=== PATIENT | female | born 1975 | race African-American/Black ===

== ENCOUNTER 2023-01-15 11:40 | Outpatient (CLI) | payer OTHER, SELFPAY ==
[2023-01-15 12:21] LABS: Hemoglobin 10.1 g/dL (12.0-15.0); Mean Corpuscular HGB Conc 30.6 g/dl (32-36); Mean Corpuscular Volume 75.2 fl (80-100); Mean Platelet Volume 10.3 fl (7.4-10.4); Platelet Count Result 365 k/mm3 (150-375); Red Blood Count 4.39 M/mm3 (4.2-5.4); Red Cell Distribution Width 17.3 % (11.5-14.5); White Blood Count 7.5 K/mm3 (4.5-10.0)
== END 2023-01-15 11:41 | disposition home or self-care (01) ==
LOC: ANHLAB 11:43
PROVIDERS: Visit Provider Obstetrics & Gynecology
DX: Z01.818 Encounter for other preprocedural examination (principal)
CPT/HCPCS: 36415; 85027

== ENCOUNTER 2023-02-05 00:45 | Day surgery (SDC) | payer OTHER, SELFPAY ==
[2023-02-03 13:00] VITALS: BMI 29.7
--- NOTE | 2023-02-03 13:10 | SUR.PREOP ---
Report to the Outpatient Waiting Room, entrance under the green pavilion located off [facility], at time 0600 on date 02/05/23. Planned Procedure Time: 0730. Time changes happen often and if your time is changed the preop area will call you the afternoon before. - You and your visitor will be asked to self-screen and do not enter if you have any COVID symptoms. - A mask is optional within the hospital at this time. Patients may have clear liquids (water, carbonated beverages, clear teas, apple juice) until 3 hours prior to surgery with a maximum of 20 ounces. - No food from midnight until time of surgery - Infants may have breast milk until 4 hours before surgery, formula 6 hours prior to surgery. - Children will be allowed to drink immediately following surgery. If applicable, please bring a bottle or sippy cup to assist with drinking. Juice, water, soda, and popsicles are readily available. For infants on formula, please bring formula the day of surgery. Pacifiers are allowed. Take the following medications with a SIP of water the morning of surgery: ___N/A DO NOT STOP ANY OF YOUR OTHER PRESCRIPTION MEDICATIONS PRIOR TO SURGERY ?EXCEPT THE FOLLOWING Medications to discontinue per physician ____SPIRONOLACTONE, FERROUS SULFATE DAY OF SURGERY Date to take last dose Please no make-up, nail trinidadian, hairspray, perfume, deodorant, or body powder the day of surgery. No jewelry (including any body piercings) or valuables the day of surgery, leave them at home. Please take a shower or bath the night before, or the morning of, surgery with an antibacterial soap. Wear comfortable, loose fitting clothing. Children are encouraged to wear pajamas. - Jewelry must be removed prior to entering the operating room. Rings and piercings that are not removed may be cut off. - The hospital will not accept responsibility for valuables. - Please leave all valuables, including medications, at home the day of surgery. If you are going home after surgery, a licensed bulk truck driver must drive you home. - NO public transportation without another adult if you receive anesthesia. - We recommend that an adult stay with you for 24 hours following discharge. - We also recommend that you do not drive, make important decision, drink alcoholic beverages, or take any drugs that were not prescribed by your health care provider for at least 24 hours after your discharge time. For Pediatric surgeries, we recommend two adults accompany the child home. Follow any additional instructions given to you from your surgeon. If you or anyone in your household have experienced Covid symptoms in the past week, please notify your surgeon or the nurse liaison at the phone number below for possible testing. Telephone instructions given to _PATIENT_and asked if any additional questions and then verbalized understanding. Patient advised to call surgeon office or pre surgery nurse liaison [phone] if any additional questions.
[2023-02-05] VITALS (11 sets, daily range): BP systolic 111–150; BP diastolic 68–100; PULSE 64–99; RESP 12–20; TEMP 36.3–37.5; O2SAT 96–100
[2023-02-05] MEDS: LACTATED RINGERS 1,000 ML 30 ML IV CONT ×2 (06:29→10:22)
[2023-02-05] MEDS: KETOROLAC 15 MG/ML VIAL (*BKC) IV PUSH (06:30)
[2023-02-05] MEDS: ACETAMINOPHEN 500 MG TABLET 1000 MG PO (06:30)
--- NOTE | 2023-02-05 06:34 | P.PNAN_ITS ---
Anes - Initial Pre Proc Eval Procedure: Operation Date: 02/05/23 07:30 Proposed Procedures p Robotic Laparoscopic Total Hysterectomy with Bilateral Salpingectomy - Everett Arriaga MD Date/Time: 02/05/23 06:34 Surgeon: Everett Arriaga MD Pre Op Diagnosis: fibroid uterus , irregular menstruation Patient Data Age: 47 Gender: F Height: 1.68 m Weight: 83.46 kg Allergies Allergy/AdvReac Type Severity Reaction Status Date / Time No Known Allergies Allergy Verified 01/15/23 10:51 Home Medications Medication Instructions Recorded Confirmed Type spironolactone 100 mg tablet 100 mg PO BID 04/27/20 02/03/23 History ferrous sulfate 325 mg (65 mg 325 mg PO BID #60 tabs 01/15/23 02/03/23 Rx iron) tablet Patient hx anesthesia problems: none Family hx anesthesia problems: none Results Review: All pre-operative results and documents have been reviewed as part of the pre- operative evaluation. [facility] Past Medical History Medical History (Updated 02/05/23 @ 06:34 by Berto Leija MD) Overweight Surgical History Surgical History H/O myomectomy Family History Family History Father Family history of diabetes mellitus in first degree relative Mother Family history of lupus erythematosus Social History Social History Smoking status: Smoker, status unknown Second hand tobacco smoke exposure: No Smoking end date: 08/18/03 Additional smoking assessment comments: PT STATES THAT SHE HAS AN OCCASIONAL CIGARETTE WITH A DRINK Alcohol intake: unknown Alcohol use details: OCCASIONAL DRINK Substance use: unknown Current Housing: Decline to Answer Concerned About Future Housing: Decline to Answer Difficulty Paying Gas/Electric Bills: Decline to Answer Difficulty Paying for Meds: Decline to Answer Currently Unemployed: Decline to Answer Difficulty w/ Childcare or Family Care: Decline to Answer Living arrangements: with family Spiritual care concerns: No Anes - Eval Final PreProcedure Day of Procedure 02/05/23 06:34 Patient weight: overweight Heart: regular rate and rhythm Lungs: clear to auscultation Airway: Mallampati scale class II Neurological: alert and oriented Last oral intake: >/= 8 hours ASA classification: II Emergent: no Anesthetic plan: proceed Anesthesia type and monitoring: general ETT and standard monitoring Results Review: All pre-operative results and documents have been reviewed as part of the pre- operative evaluation. Informed Consent: The patient's anesthetic plan and its attendant risks and benefits were discussed with the patient/family/POA. Questions were solicited and answers provided to the satisfaction of the patient/family/POA.
--- NOTE | 2023-02-05 06:44 | PM.IMHP ---
H&P: HPI History of Present Illness Date/Time: 02/05/23 06:45 Chief Complaint: Prolonged heavy periods Narrative: She is a 47 y/o G0 with history of symptomatic fibroid uterus with menorrhagia and anemia. She has a long history of fibroids. She has had a prior myomectomy in 2013. Her menorrhagia resolved until over a year ago when periods started lasting 9 days and moderate to heavy flow. Had episodes of intermenstrual bleeding. Last hemoglobin 10. She was started on oral iron therapy. She had ultrasound which showed fibroids returned. Recent endometrial biopsy normal. She has been informed of the treatment options for symptomatic fibroid uterus and wants definitive therapy with hysterectomy. She has been made aware of benefits of salpingectomy and request this at the same time. Is aware will not be able to conceive and carry with hysterectomy. She does not have menopausal symptoms and wants ovaries to remain unless necessary to remove them. Review of Systems Review of Systems: All systems reviewed & are unremarkable except as noted in HPI and below Cardiovascular: Cardiovascular: Reports no additional cardiovascular complaints, Denies chest pain and Denies dyspnea Respiratory: Respiratory: Reports no additional respiratory complaints and Denies dyspnea Gastrointestinal: Gastrointestinal: Reports abdominal pain, Denies change in bowel habits, Denies diarrhea, Denies nausea and Denies vomiting Genitourinary: Genitourinary: Reports pelvic pain Musculoskeletal: Musculoskeletal: Reports back pain Integumentary/Breasts: Skin/Breast: Reports system reviewed and no additional complaints, except as docu Neurologic: Reports system reviewed and no additional complaints, except as documented PMFSH Past Medical History Medical History Overweight Surgical History Surgical History H/O myomectomy Family History Family History Father Family history of diabetes mellitus in first degree relative Mother Family history of lupus erythematosus Social History Social History Smoking status: Smoker, status unknown Second hand tobacco smoke exposure: No Smoking end date: 08/18/03 Additional smoking assessment comments: PT STATES THAT SHE HAS AN OCCASIONAL CIGARETTE WITH A DRINK Alcohol intake: unknown Alcohol use details: OCCASIONAL DRINK Substance use: unknown Current Housing: Decline to Answer Concerned About Future Housing: Decline to Answer Difficulty Paying Gas/Electric Bills: Decline to Answer Difficulty Paying for Meds: Decline to Answer Currently Unemployed: Decline to Answer Difficulty w/ Childcare or Family Care: Decline to Answer Living arrangements: with family Spiritual care concerns: No Meds Home Medications and Allergies Home Medications Medication Instructions Recorded Confirmed Type spironolactone 100 mg tablet 100 mg PO BID 04/27/20 02/05/23 History ferrous sulfate 325 mg (65 mg 325 mg PO BID #60 tabs 01/15/23 02/05/23 Rx iron) tablet Allergies Allergy/AdvReac Type Severity Reaction Status Date / Time No Known Allergies Allergy Verified 01/15/23 10:51 Exam Const: Orientation/consciousness: oriented to person and oriented to place HENMT: Head: normal to inspection Eyes: General: appearance normal, both eyes and all related structures Resp: Effort & Inspection: normal respiratory effort Auscultation: clear to auscultation bilaterally Cardio: Rate: regular rate Rhythm: regular rhythm GI: Inspection: normal to inspection GI Palp: No Rebound tenderness present : External Female Exam: normal external appearance Speculum Exam - Vagina: normal appearance of the vagina Speculum Exam - Cervix: normal appearance of the cervix Bima
--- NOTE | 2023-02-05 06:55 | WPDHPUPDATE1 ---
History and Physical Update Update Date/Time: 02/05/23 06:55 History and Physical has been reviewed, including an updated exam of the patient. There are NO changes in the patient's condition. Risks, benefits, and alternatives have been discussed and questions answered. Patient agrees to proceed with procedure.
[2023-02-05 07:04] LABS: Anion Gap 6 mmol/L (8-16); Blood Urea Nitrogen 15 mg/dL (7-17); Calcium 8.6 mg/dL (8.4-10.2); Carbon Dioxide 26 mmol/L (22-30); Chloride 102 mmol/L (98-107); Estimated CRCL calculation 74 ml/min; Estimated Glomerular Filt Rate > 60; Glucose 116 mg/dL (65-110); Potassium 4.5 mmol/L (3.4-5.0); Sodium 134 mmol/L (137-145)
[2023-02-05] MEDS: ceFAZolin 2 GM/D5W 50 ML 2 GM/50 ML BAG IVPB (07:26)
--- NOTE | 2023-02-05 07:30 | W.PM.PROC2 ---
Procedure Note - Detailed Date of Procedure 02/06/23 Pre-op Diagnosis fibroid uterus , irregular menstruation Post-op Diagnosis Same Procedure Performed Robotic assisted laparoscopic hysterectomy with bilateral salpingectomy Lysis of adhesions Surgeon Everett Arriaga MD Air Pumper Juan R Quintero Anesthesia General Indications Symptomatic recurrent fibroid uterus with menorrhagia and anemia. Findings Large fibroid uterus with multiple subserosal and intramural fibroids. Description of Procedure After informed consent was obtained she was taken to the operating room and general endotracheal anesthesia was administered. She was placed in low lithotomy position. An exam under anesthesia was performed. Uterus approximately 12-14 week size, no adnexal masses palpated. She was and prepped and draped in sterile fashion. Madrigal catheter placed in bladder. Attention was turned to the vagina speculum was inserted. Single-tooth tenaculum placed on anterior lip of the cervix the uterus sounded to 7cm. The cervix was dilated to a 8 Wong dilator. A size 6 uterine manipulator was inserted and secured. A size 3.0 colp cup was secured in the vagina. Then attention was turned to the abdomen with new sterile gloves. .25% marcaine injected subcutaneously. An incision was made horizontal 2 cm above the umbilicus. The subcutaneous tissue was dissected with S retractors. Anterior and posterior fascia grasped with Ethel clamp and incised. Peritoneum entered. No adhesions palpated. The fascia sutures were secured with 0 vicryl. The robotic hysson port and camera inserted into abdomen and secured to fascial sutures. A Pneumoperitoneum of 15 mm per mercury was obtained. No abdominal adhesions noted there was adhesions of the left ovary to the fallopian tube. She was placed in trendelenberg position until the intestines was displaced out of the pelvis. A small incision was made approximately 6 cm lateral to the port on the left side of the port. A size 8mm robotic port was inserted under laparoscopic visualization into the abdomen on the left side. Attention was turned to right side of the abdomen and marcaine was injected subcutaneously and an incision made and an 8mm robotic port inserted. This was repeated superior and medial and an dam tender assistant port was inserted. Attention was turned to the surgery console. The bladder and lower anterior peritoneum was adhesed to the mid uterus and the adhesions were lysed.The right round ligament was ligated. The anterior leaf of the broad ligament was dissected and the right side of the bladder was dissected from the lower uterine segment and upper cervix. The right fallopian tube was ligated from the broad ligament and the ovarian ligament was ligated with the vessel sealer. The a posterior leaf of the broad ligament was further dissected. The ascending uterine vessels were cauterized, the uterine vessels on the right were skeletonized. The uterine vessels were ligated. Attention was turned to the left round ligament which was ligated and the anterior leaf of the broad ligament was dissected anteriorly. The rest of the vesicouterine peritoneum was dissected off of the uterus. Once the bladder was dissected below the colp cup then the adhesions of the left ovary to the uterus were lysed and the adhesions of the ovary to uterus were lysed. The left ovarian ligament with ligated. The posterior leaf of the broad ligament was further dissected. The ascending uterine vessels were ligated. The uterine arteries were skeletonized. The uterine arteries were ligated. The cardinal ligaments were ligated. This was done on both sides. An incision was made anterior colpotomy incision was made and was carried around to posterior cul de sac. The uterus was then bivalved. The rest of the colpotomy was performed removing the cervix from the vagina. Two larger intramural posterior fibroids were shelled out to allow the uterus and cervix to be removed through t
[2023-02-05] MEDS: BUPIVACAINE/EPINEPHRINE 0.5% 50 ML VIAL INFILTRATE (08:09)
[2023-02-05] MEDS: SCOPOLAMINE 1.5 MG PATCH TRANSDERM (10:59)
--- NOTE | 2023-02-05 11:25 | PM.OP ---
Procedure Note - Brief Procedure Note - Brief Date of procedure: 02/05/23 fibroid uterus , irregular menstruation Post-op diagnosis: Same Procedure performed: Robotic assisted laparoscopic hysterectomy with bilateral salpingectomy Lysis of adhesions Surgeon: Everett Arriaga MD In House Counsel: Juan R Stoddard Anesthesia: GETA Findings: Enlarged uterus 408 gms, multiple subserosal and intramural fibroids. Adhesion of bladder to anterior uterus. Adhesion of left ovary to fallopian tube and uterus. Estimated blood loss (mL): 150 Urine output (mL): 200 Drains: No Packing: No Pathology: Yes (uterus and cervix and right and left fallopian tubes,and fibroids) Complications: No immediate complications Condition: Stable Disposition: PACU
[2023-02-05] MEDS: BISACODYL 5 MG TABLET EC PO (15:40)
[2023-02-05] MEDS: HYDROcodone/acetaminophen (*CRX) 5-325 MG TABLET 1 TAB PO (15:40)
[2023-02-05] MEDS: KETOROLAC 30 MG/ML VIAL (*BKC) IV PUSH ×2 (16:05→22:12)
[2023-02-05] MEDS: HYDROcodone/acetaminophen (*CRX) 10-325 MG TABLET 1 TAB PO (18:35)
[2023-02-06 05:00] VITALS: BP 128/87; PULSE 95; RESP 16; TEMP 37; O2SAT 100
[2023-02-06] MEDS: SIMETHICONE 80 MG TAB.CHEW PO ×3 (05:13→11:48)
[2023-02-06] MEDS: KETOROLAC 30 MG/ML VIAL (*BKC) IV PUSH ×2 (05:13→11:48)
--- NOTE | 2023-02-06 07:54 | WPDANESPN ---
Anes - Prog Note Post-Op Date/Time: 02/06/23 07:54 Cardiovascular status: normal Respiratory status: normal Airway patency: baseline Mental status: baseline Post-Op hydration status: normal Vital Signs: Last Vital Signs Temp 37.0 C 02/06/23 05:00 Pulse 95 02/06/23 05:00 Resp 16 02/06/23 05:00 BP 128/87 02/06/23 05:00 Pulse Ox 100 02/06/23 05:00 O2 Del Method Room Air 02/06/23 05:00 O2 Flow Rate 8 02/05/23 10:35 Pain Score (VAS): 10/25 I/O: Intake & Output 02/05/23 02/05/23 02/06/23 15:59 23:59 07:59 Intake Total 650 800 Output Total 1520 100 100 Balance -870 -100 700 Laboratory Tests 02/05/23 06:18 02/05/23 06:18 Blood Type O Positive Antibody Screen Positive Antibody Identification Anti-E Antigen Identification Not Reportable FELISHA, IgG Interpret Not Performed FELISHA, Poly Interpret Negative FELISHA, Complement Interp Not Performed Crossmatch See Detail Enhanced Crossmatch See Detail Post-procedural complaints: none Patient Feedback: Patient satisfied with anesthetic care.
[2023-02-06 08:05] VITALS: PULSE 105; RESP 18; TEMP 36.9; O2SAT 99
[2023-02-06] MEDS: ACETAMINOPHEN 325 MG TABLET 650 MG PO (08:30)
[2023-02-06 08:45] VITALS: BP 129/81
--- NOTE | 2023-02-06 08:45 | PC.NURSE ---
Pepsi and prune juice given to pt per MD order. Instructed pt to drink to encourage bowel activity. Encouraged pt to walk in the halls. Pt states understanding.
[2023-02-06] MEDS: polyethylene glycoL 3350 17 GM POWD.PACK PO (13:50)
== END 2023-02-06 17:00 | disposition home or self-care (01) ==
LOC: ANHSURGERY 05:51 → ANHOB2 13:59
PROVIDERS: Anesthesiology; Visit Provider Obstetrics & Gynecology
PROC: (CPT 58573; principal; 2023-02-05 07:30)
DX: N92.0 Excessive and frequent menstruation with regular cycle (principal); D64.9 Anemia, unspecified; D25.0 Submucous leiomyoma of uterus; D25.1 Intramural leiomyoma of uterus; D25.2 Subserosal leiomyoma of uterus; Z72.0 Tobacco use
CPT/HCPCS: 58573; S2900; 36415; 80048; 85027; 86850; 86880; 86900; 86901; 86902; 86922; 88307; 99199; A9270; J0330; J0360; J0690; J1100; J1170; J1885; J2250; J2405; J2704; J2710; J3010; J7030; J7120

== ENCOUNTER 2023-02-20 05:36 | Inpatient (IN) | payer OTHER, SELFPAY ==
[2023-02-20] VITALS (9 sets, daily range): BP systolic 95–131; BP diastolic 56–86; PULSE 100–120; RESP 15–24; TEMP 36.2–36.8; O2SAT 94–100; BMI 33.5
--- NOTE | ~2023-02-20 | CT_ITS ---
CT of the Abdomen and Pelvis: Indication: Status post hysterectomy, abdominal pain and bleeding Technique: 2.5 mm axial scans were obtained through the abdomen and pelvis following intravenous adm inistration of 100 cc of Omnipaque 350. Dose reduction technique was used on this scan by utilizing a utomated exposure control and iterative reconstruction technique. The dose-length product (DLP) was 5 60.50 mGy-cm. Findings: Scans through the lung bases are unremarkable. The liver, spleen, pancreas, gallbladder, adrenals and kidneys are within normal limits. No evidence of aortic aneurysm. No lymphadenopathy. Prominent stool noted at the rectum. No bowel obstruction. Images through the pelvis were performed. Patient is status post hysterectomy. There is a peripherall y enhancing fluid and air collection in the pelvis extending to the lower abdomen measuring approxima tely 10.5 x 10.2 x 9.4 cm in size, compatible with large abscess. Urinary bladder unremarkable. There is infiltration of surrounding pelvic fat planes, likely due to inflammatory change and/or postopera tive change. Impression: 10.5 x 10.2 x 9.4 cm central pelvic abscess, as detailed above. Reviewed, dictated and finalized at location M. Impression: 10.5 x 10.2 x 9.4 cm central pelvic abscess, as detailed above.
--- NOTE | ~2023-02-20 | XR_ITS ---
EXAMINATION: XR chest PICC line DATE: 02/23/2023 09:21 INDICATION: Central line placement. TECHNIQUE: A single frontal view of the chest was obtained. COMPARISON: None. FINDINGS: The chest demonstrates clear lungs without pneumonia, pleural effusion, or pneumothorax. Th e heart size is normal. A right upper extremity peripherally inserted central venous catheter (PICC) is seen with tip in the superior vena cava. IMPRESSION: 1. PICC tip in the superior vena cava. Reviewed, dictated and finalized at location A.
--- NOTE | ~2023-02-20 | CT_ITS ---
EXAMINATION: CT abdomen pelvis wo con DATE: 02/21/2023 10:19 INDICATION: Pelvic abscess. TECHNIQUE: Computed tomography (CT) of the abdomen and pelvis was performed without intravenous contr ast. Automated exposure control and iterative reconstruction technique were employed. The dose-length product was 504.43 mGy-cm. COMPARISON: CT abdomen and pelvis 02/20/2023 FINDINGS: The visualized portions of the lung bases demonstrate mild atelectasis. No pleural effusion . The heart size is normal. No pericardial effusion. The liver, gallbladder, spleen, pancreas, adrena l glands, and left kidney are normal. There is an 11 mm hyperdense cyst in right kidney. There is a 7 .7 x 6.7 x 5.6 cm pelvic abscess with percutaneous drain in expected position. There are no dilated l oops of bowel. The appendix is not well visualized. There is a supraumbilical ventral hernia containi ng fat. There are no pathologically enlarged lymph nodes. There is fat stranding in the inferior diamond toneum, consistent with inflammation. There is subcutaneous fat stranding in the body wall, which may be scarring from abdominoplasty if the patient has that surgical history. There is mild lumbar spond ylosis. IMPRESSION: 1. 7.7 x 6.7 x 5.6 cm pelvic abscess with percutaneous drain in expected position, improved from 10.5 x 10.2 x 9.5 cm on 02/20/2023. 2. Supraumbilical ventral hernia containing fat. Reviewed, dictated and finalized at location A. IMPRESSION: 1. 7.7 x 6.7 x 5.6 cm pelvic abscess with percutaneous drain in expected positi on, improved from 10.5 x 10.2 x 9.5 cm on 02/20/2023. 2. Supraumbilical ventral hernia containing fat.
--- NOTE | ~2023-02-20 | CT_ITS ---
EXAMINATION: CT guide absc cath placement DATE: 02/20/2023 15:27 INDICATION: Pelvic abscess. TECHNIQUE: The procedure including the risks, benefits, and alternatives was discussed with the patie nt. Risks discussed included bleeding and infection. The patient understood the risks and benefits an d agreed to proceed. The patient was confirmed to be receiving appropriate antibiotic coverage. The skin overlying the abdomen was prepped and draped in usual sterile fashion. Anesthetic was administe red with 1% lidocaine subcutaneously. An 18 gauge trochar needle was inserted into the pelvic abscess with CT guidance. The needle was exchanged over a wire for 6 Guinean, 8 Guinean, 10 Guinean, and 12 [facility] dilators and then for a 12 Guinean Guinean pigtail catheter. The catheter was stitched to the skin, and a sterile dressing was applied. The mA was adjusted according to patient size. Iterative reconst ruction technique was employed. The dose-length product was 164.99 mGy-cm. There were no immediate co mplications. FINDINGS: CT images demonstrate the catheter within the pelvic abscess. 5 mL fluid was aspirated for testing. IMPRESSION: 1. Successful CT-guided pelvic abscess drainage. 2. 5 mL opaque, red, foul-smelling fluid was sent for aerobic and anaerobic cultures. Reviewed, dictated and finalized at location A. IMPRESSION: 1. Successful CT-guided pelvic abscess drainage. 2. 5 mL opaque, red, foul-smelling fluid was sent for aerobic and anaerobic cul tures.
--- NOTE | ~2023-02-20 | CT_ITS ---
Non-contrast CT scan of the Abdomen and Pelvis Clinical indication: Abdominal discomfort Technique: 2.5 mm axial scans were obtained through the abdomen and pelvis without intravenous or or al contrast. Dose reduction technique was used on this scan by utilizing automated exposure control a nd iterative reconstruction technique. The dose-length product (DLP) was 614.34 mGy-cm. COMPARISON: 02/21/2023 Findings: Images through the lung bases reveal no abnormalities. There is no evidence of renal or ureteral calculi. The kidneys and the ureters are nondilated. The liver, spleen, pancreas, gallbladder, and adrenals appear normal. There is no aortic aneurysm. There is no evidence of bowel obstruction. Fat-containing ventral hernia is unchanged. Images through the pelvis were performed. Pelvic abscess with percutaneous drainage catheter is again present, essentially unchanged from prior exam. Urinary bladder unremarkable. Impression: Stable pelvic abscess with percutaneous drainage catheter. Correlate with drainage output. Stable ventral fat-containing hernia. Reviewed, dictated and finalized at [facility]. Impression: Stable pelvic abscess with percutaneous drainage catheter. Correlate with drain age output. Stable ventral fat-containing hernia.
[2023-02-20] MEDS: HYDROmorphone HCL INJ (*CRX) 1 MG/ML SYR 0.5 MG IV PUSH ×2 (06:35→07:28)
[2023-02-20] MEDS: SODIUM CHLORIDE 0.9% IV 2,000 ML 999 ML IV CONT (06:36)
--- NOTE | 2023-02-20 06:37 | ED.GENADULT ---
HPI - General Adult General Chief complaint: Vaginal Bleeding <José Miguel Baker MD - Last Filed: 02/23/23 18:20> Stated complaint: post op bleeding <José Miguel Baker MD - Last Filed: 02/23/23 18:20> Time Seen by Provider: 02/20/23 06:12 <José Miguel Baker MD - Last Filed: 02/23/23 18:20> History of Present Illness HPI narrative: This is a 47-year-old female presenting to the ED with vaginal bleeding after she had a total Robotic assisted laparoscopic hysterectomy with bilateral salpingectomy performed by Dr. Arriaga on 02/05/2023. Patient has had increasing abdominal pain since the surgery but has gotten particularly worse over the last 4-5 days. He has sharp stabbing pain in her lower abdomen. Today she woke up with significant amount of blood on her bed sheets. She then put on a sanitary pad and came to the hospital for evaluation. Patient denies fever chills chest pain nausea vomiting or diarrhea. <José Miguel Baker MD - Last Filed: 02/23/23 18:20> Related Data Home medications: Home Medications Medication Instructions Recorded Confirmed spironolactone 100 mg tablet 100 mg PO BID 04/27/20 02/20/23 <José Miguel Baker MD - Last Filed: 02/23/23 18:20> Allergies/adverse reactions: Allergies Allergy/AdvReac Type Severity Reaction Status Date / Time No Known Allergies Allergy Verified 01/15/23 10:51 <José Miguel Baker MD - Last Filed: 02/23/23 18:20> [facility] Past Medical History Medical History: Medical History (Updated 02/23/23 @ 12:18 by Rosana Mora PA-C) Anemia Loida Fibroid uterus Irregular periods Overweight <José Miguel Baker MD - Last Filed: 02/23/23 18:20> Surgical History Surgical History: Surgical History H/O hysterectomy with oophorectomy H/O myomectomy <José Miguel Baker MD - Last Filed: 02/23/23 18:20> Family History Family History: Family History Father Family history of diabetes mellitus in first degree relative Mother Family history of lupus erythematosus <José Miguel Baker MD - Last Filed: 02/23/23 18:20> Social History Social History: Social History (Updated 02/22/23 @ 01:07 by Nikki Kendrick NP) Social History: The patient works for the [employer]. She is single not . She lives alone. She has never had any children. She socially drinks. She does not have a durable power bankruptcy attorney for healthcare. Code status full code Smoking packs per day: 0.05 Smoking cigarettes per day: 1.0 Smoking status: Current every day smoker Tobacco type: cigarettes Second hand tobacco smoke exposure: No Smoking end date: 08/18/03 Additional smoking assessment comments: PT STATES THAT SHE HAS AN OCCASIONAL CIGARETTE WITH A DRINK Alcohol intake: current Drinks per week: 2 Alcohol use details: OCCASIONAL DRINK Substance use: unknown Lack of Transportation: No Lack of Food: Never True Current Housing: I Have Housing Concerned About Future Housing: No Difficulty Paying Gas/Electric Bills: No Difficulty Paying for Meds: No Currently Unemployed: No Education: High School Diploma/GED Difficulty w/ Childcare or Family Care: No Living arrangements: with family Spiritual care concerns: No <José Miguel Baker MD - Last Filed: 02/23/23 18:20> Exam Narrative: APPEARANCE: Patient appears uncomfortable Head: atraumatic. EYES: EOMI, NOSE: Atraumatic NECK: Trachea midline RESPIRATORY: No increased rate of breathing clear to auscultation CARDIOVASCULAR: RRR, ABDOMINAL: abdomen is tender to palpation in the lower quadrants. Several well-healed surgical scars without erythema. Red blood at the vaginal introitus. MUSCULOSKELETAl: No obvious deformities NEURO: Alert. Moving 4/4 extremities SKIN:: Warm, dry. Normal color PSYCHIATRIC: Normal affect <José Miguel Baker MD - Last Fi
[2023-02-20 06:38] LABS: Glucose Point of Care 131 mg/dl (65-105)
[2023-02-20 07:15] LABS: Lactic Acid Reflex 1.6 mmol/L (0.7-2.0)
[2023-02-20 07:16] LABS: Alanine Aminotransferase 98 U/L (6-35); Albumin Level 3.6 g/dL (3.5-5.1); Alkaline Phosphatase 121 U/L (38-126); Anion Gap 11 mmol/L (8-16); Aspartate Amino Transferase 67 U/L (14-36); Bilirubin,Total 0.7 mg/dL (0.2-1.3); Blood Urea Nitrogen 14 mg/dL (7-17); Calcium 8.5 mg/dL (8.4-10.2); Carbon Dioxide 21 mmol/L (22-30); Chloride 94 mmol/L (98-107); Estimated CRCL calculation 74 ml/min; Estimated Glomerular Filt Rate > 60; Glucose 122 mg/dL (65-110); Magnesium 2.1 mg/dL (1.6-2.3); Sodium 126 mmol/L (137-145)
[2023-02-20 07:28] LABS: INR 1.1; Prothrombin Time 14.8 Seconds (11.1-14.7)
[2023-02-20 07:39] LABS: Basophils Percent Auto 0.2 % (0.2-1.2); Eosinophils Absolute Auto 0.1 K/mm3 (0-0.3); Eosinophils Percent Auto 0.6 % (0-4.4); Hematocrit 27.4 % (37.0-47.0); Hemoglobin 8.3 g/dL (12.0-15.0); Immature Granulocyte Absolute 0.08 K/mm3 (0.00-0.031); Immature Granulocyte Percent A 0.6 % (0-0.5); Lymphocytes Absolute Auto 1.31 K/mm3 (0.9-3.2); Lymphocytes Percent Auto 10.6 % (18.3-44.2); Mean Corpuscular HGB Conc 30.3 g/dl (32-36); Mean Corpuscular Hemoglobin 25.4 pg (26-34); Mean Corpuscular Volume 83.8 fl (80-100); Monocytes Absolute Auto 1.1 K/mm3 (0.1-0.6); Monocytes Percent Auto 8.8 % (2.6-8.5); Neutrophils Absolute Auto 9.7 K/mm3 (1.3-6.7); Neutrophils Percent Auto 79.2 % (45.5-73.1); Platelet Count Result 541 k/mm3 (150-375); Red Blood Count 3.27 M/mm3 (4.2-5.4); Red Cell Distribution Width 23.8 % (11.5-14.5); White Blood Count 12.3 K/mm3 (4.5-10.0)
--- NOTE | 2023-02-20 07:44 | PC.NURSE ---
Dr. Arriaga in dept to see patient.
[2023-02-20 08:02] LABS: Anisocytosis 1+ (NORMAL); Hypochromasia 1+ (NORMAL); Microcytosis 1+ (NORMAL); Platelet Estimate Increased (Adequate); Schistocytes None Seen (NORMAL)
[2023-02-20] MEDS: PIPERACILLIN/TAZOBACTAM SOD 4.5 GM in SODIUM CHLORIDE 0.9% IV 100 ML 200 ML IVPB (09:00)
[2023-02-20] MEDS: SODIUM CHLORIDE 0.9% IV 1,000 ML 125 ML IV CONT ×2 (09:00→16:46)
--- NOTE | 2023-02-20 09:48 | PC.NURSE ---
This patient, Gladys Judge, was admitted to Medical Room 340-01. Patient/family oriented to hospital policies and general routines including ID bracelet, bed and alarms, visiting hours, pain management, procedures, bathroom and other care routines, personal items, smoking policy, room service/diet, and visiting hours. Information on how to activate the Rapid Response Team has been discussed. Patient/Family are encouraged to report perceived risks to care and to ask questions if they do not understand what they are told or what they should do.
--- NOTE | 2023-02-20 13:14 | PM.IMHP ---
H&P: HPI History of Present Illness Date/Time: 02/20/23 13:14 Chief Complaint: vaginal bleeding Narrative: She is status post uncomplicated lap hyst on 02/05 and presented to ED in the am due to acute vaginal bleeding that started approximately 4am. She had not had any bleeding prior to this. She had been having some increase pelvic pressure for 3-4 days. She denies fever or chills. No nausea or vomiting. CT in ED showed 10.5 x 10.2 x 9.4 cm central pelvic abscess. Review of Systems Review of Systems: All systems reviewed & are unremarkable except as noted in HPI and below Constitutional: Constitutional: Reports as per HPI and Denies chills Cardiovascular: Cardiovascular: Denies chest pain Respiratory: Respiratory: Reports no additional respiratory complaints Gastrointestinal: Gastrointestinal: Reports abdominal pain and Reports constipation (occasional) Genitourinary: Genitourinary: Reports as per HPI Musculoskeletal: Musculoskeletal: Reports no additional musculoskeletal complaints Neurologic: Reports system reviewed and no additional complaints, except as documented Psychiatric: Psychiatric: Reports no additional psychiatric complaints [facility] Past Medical History Medical History Overweight Surgical History Surgical History H/O hysterectomy with oophorectomy H/O myomectomy Family History Family History Father Family history of diabetes mellitus in first degree relative Mother Family history of lupus erythematosus Social History Social History Smoking packs per day: 0.05 Smoking cigarettes per day: 1.0 Smoking status: Current every day smoker Tobacco type: cigarettes Second hand tobacco smoke exposure: No Smoking end date: 08/18/03 Additional smoking assessment comments: PT STATES THAT SHE HAS AN OCCASIONAL CIGARETTE WITH A DRINK Alcohol intake: current Drinks per week: 2 Alcohol use details: OCCASIONAL DRINK Substance use: unknown Lack of Transportation: No Lack of Food: Never True Current Housing: I Have Housing Concerned About Future Housing: No Difficulty Paying Gas/Electric Bills: No Difficulty Paying for Meds: No Currently Unemployed: No Education: High School Diploma/GED Difficulty w/ Childcare or Family Care: No Living arrangements: with family Spiritual care concerns: No Meds Home Medications and Allergies Home Medications Medication Instructions Recorded Confirmed Type spironolactone 100 mg tablet 100 mg PO BID 04/27/20 02/20/23 History ferrous sulfate 325 mg (65 mg 325 mg PO BID #60 tabs 01/15/23 02/20/23 Rx iron) tablet hydrocodone 5 mg-acetaminophen 325 1 tablet PO Q4H PRN pain #20 tabs 02/06/23 02/20/23 Rx mg tablet ketorolac 10 mg tablet 10 mg PO Q6H PRN Pain Rated 4-6 02/06/23 02/20/23 Rx #15 tabs Allergies Allergy/AdvReac Type Severity Reaction Status Date / Time No Known Allergies Allergy Verified 01/15/23 10:51 Vital Signs Vital Signs - 24 hr 02/20/23 05:39 02/20/23 06:18 02/20/23 07:08 Temperature 97.1 F L 98 F Pulse Rate 118 H 120 H 109 H Respiratory Rate 20 19 18 Blood Pressure 122/79 131/86 123/79 Pulse Oximetry 99 99 99 Oxygen Delivery Room Air 02/20/23 07:58 02/20/23 08:53 02/20/23 09:48 Temperature 98.2 F Pulse Rate 109 H 109 H Respiratory Rate 24 H 20 Blood Pressure 95/56 L Pulse Oximetry 100 100 100 Oxygen Delivery Room Air 02/20/23 12:39 Temperature 98.0 F Pulse Rate 106 H Respiratory Rate 15 Blood Pressure 117/76 Pulse Oximetry 94 Oxygen Delivery Exam Const: General: cooperative Orientation/consciousness: oriented to person, oriented to place and oriented to time Eyes: General: appearance normal, both eyes and all related structure
[2023-02-20] MEDS: PIPERACILLN/TAZ 3.375GM/NS50ML 3.375 GM/50 ML BAG IVPB ×2 (16:46→23:33)
[2023-02-20] MEDS: HYDROcodone/acetaminophen (*CRX) 5-325 MG TABLET 1 TAB PO ×2 (18:05→22:00)
[2023-02-20] MEDS: HYDROcodone/acetaminophen (*CRX) 10-325 MG TABLET 1 TAB PO (23:36)
[2023-02-21] MEDS: PIPERACILLN/TAZ 3.375GM/NS50ML 3.375 GM/50 ML BAG IVPB ×3 (05:56→17:45)
[2023-02-21 06:00] VITALS: BP 117/72; PULSE 86; RESP 18; TEMP 36; O2SAT 100
[2023-02-21 06:19] LABS: Hematocrit 26.7 % (37.0-47.0); Hemoglobin 7.8 g/dL (12.0-15.0); Mean Corpuscular HGB Conc 29.2 g/dl (32-36); Mean Corpuscular Hemoglobin 24.6 pg (26-34); Mean Corpuscular Volume 84.2 fl (80-100); Platelet Count Result 545 k/mm3 (150-375); Red Blood Count 3.17 M/mm3 (4.2-5.4); Red Cell Distribution Width 23.7 % (11.5-14.5); White Blood Count 10.3 K/mm3 (4.5-10.0)
[2023-02-21] MEDS: HYDROcodone/acetaminophen (*CRX) 5-325 MG TABLET 1 TAB PO ×3 (06:47→20:42)
[2023-02-21 09:33] VITALS: O2SAT 99
--- NOTE | 2023-02-21 09:59 | PM.GYNPNOP ---
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 WBC decreasing. CT today to check for decrease size and drain placement, there is a small isolated tender area lower abdomen. Continue IV antibiotics. (2) Anemia: Code(s): D64.9 - Anemia, unspecified Status: Acute Assessment and Plan: Severe anemia, H/H slight decrease from yesterday. It does not appear active bleeding since less drain output and minimal vaginal bleeding. I recommended a blood transfusion due to the anemia and other conditions, sepsis. She is apprehensive about blood transfusion. I explained the benefits and risk. She declined the blood transfusion. Discussed with her will help her fight infection. She continues to decline. She has a history of chronic anemia. No acute hypovolemic symptoms. She wants to try oral iron. Will start oral iron. Will recheck h/h at noon. If continue to decrease then will get blood transfusion. Discussed risk of severe anemia. (3) Sepsis: Code(s): A41.9 - Sepsis, unspecified organism Status: Acute Assessment and Plan: Blood culture positive. Sensitivity pending. Continue antibiotics. Hospitalist consult. (4) Vaginal odor: Code(s): N89.8 - Other specified noninflammatory disorders of vagina Status: Acute Assessment and Plan: Discussed with her this is probably from the infected hematoma. With her history of bacterial vaginosis will treat empirically with Flagyl. Time Spent With Patient Time: Total time spent is greater than 50% in coordination of care (as documented) at patient's floor/unit and/or counseling patient: Time with patient: 15 - 25 minutes MECHANIC DRIVER- PN:Stanislaw Post-Op Subjective Date/time seen: 02/21/23 09:59 Interval history: She states she feels better. Pain improved. There is an area to the left of midline lower abdomen that is still sore. She is tolerating regular diet. No lightheadedness or dizziness. Denies SOB. Denies chest pain. No leg pain. Vaginal bleeding minimal. She c/o vaginal odor. She has a history of episodes of bacterial vaginosis. Review of Systems Constitutional: Constitutional: Reports no additional constitutional complaints Cardiovascular: Cardiovascular: Denies chest pain Respiratory: Respiratory: Denies dyspnea Genitourinary: Genitourinary: Reports vaginal odor Psychiatric: Psychiatric: Reports no additional psychiatric complaints Exam Const: General: comfortable and no acute distress Eyes: General: appearance normal, both eyes and all related structures Resp: Effort & Inspection: normal respiratory effort GI: Other: drain site clean dry abdomen decrease tenderness and swelling mid abdomen, localized tender area lower abdomen, to left of midline, Neuro: General: oriented to person, oriented to place and oriented to time Extrem: General: normal to inspection and no calf tenderness MECHANIC DRIVER - PN: Obj Data Vital Signs Vital Signs: Vital Signs - 24 hr 02/20/23 12:39 02/20/23 19:56 02/20/23 21:00 Temperature 98.0 F 98.0 F Pulse Rate 106 H 106 H 100 Respiratory Rate 15 15 18 Blood Pressure 117/76 116/62 Pulse Oximetry 94 94 99 Oxygen Delivery Room Air 02/21/23 06:00 02/21/23 09:33 02/21/23 08:00 Temperature 96.8 F L Pulse Rate 86 Respiratory Rate 18 Blood Pressure 117/72 Pulse Oximetry 100 99 Oxygen Delivery Room Air Room Air Intake/Output Intake/Output: Intake & Output 02/18/23 02/19/23 02/20/23 02/21/23 23:59 23:59 23:59 23:59 Intake Total 4110 700 Output Total 1070 50 Balance 3040 650 Meds/Results Medications: Active Medications Generic Name Dose Route Start Last Admin Trade Name Freq PRN Reason Stop Dose Admin Acetaminophen 650 mg 02/20/23 09:58 Acetaminophen 325 Mg Tablet PO Q4H PRN pain Hydrocodone Bitart/Acetaminophen 1 tab 02/20/23 17:48 0
[2023-02-21] MEDS: HYDROcodone/acetaminophen (*CRX) 10-325 MG TABLET 1 TAB PO (12:11)
[2023-02-21 12:14] LABS: Basophils Percent Auto 0.4 % (0.2-1.2); Eosinophils Absolute Auto 0.4 K/mm3 (0-0.3); Eosinophils Percent Auto 3.6 % (0-4.4); Hematocrit 27.4 % (37.0-47.0); Immature Granulocyte Absolute 0.04 K/mm3 (0.00-0.031); Immature Granulocyte Percent A 0.4 % (0-0.5); Lymphocytes Absolute Auto 1.95 K/mm3 (0.9-3.2); Lymphocytes Percent Auto 19.5 % (18.3-44.2); Mean Corpuscular HGB Conc 29.2 g/dl (32-36); Mean Corpuscular Hemoglobin 24.7 pg (26-34); Mean Corpuscular Volume 84.6 fl (80-100); Mean Platelet Volume 9.7 fl (7.4-10.4); Monocytes Absolute Auto 0.6 K/mm3 (0.1-0.6); Monocytes Percent Auto 5.7 % (2.6-8.5); Neutrophils Absolute Auto 7.1 K/mm3 (1.3-6.7); Neutrophils Percent Auto 70.4 % (45.5-73.1); Platelet Count Result 563 k/mm3 (150-375); Red Blood Count 3.24 M/mm3 (4.2-5.4); Red Cell Distribution Width 23.7 % (11.5-14.5)
[2023-02-21] MEDS: FERROUS SULFATE 324 MG TABLET PO ×2 (12:15→16:39)
[2023-02-21] MEDS: polyethylene glycoL 3350 17 GM POWD.PACK PO (12:16)
[2023-02-21 14:00] VITALS: BP 110/73; PULSE 99; RESP 16; TEMP 36.2; O2SAT 99
--- NOTE | 2023-02-21 20:08 | PM.IMCN ---
Assessment and Plan Assessment and plan (1) Postoperative abscess: Code(s): T81.49XA - Infection following a procedure, other surgical site, initial encounter Status: Acute Assessment and Plan: The patient is currently on Flagyl and Zosyn. Blood cultures are pending. Culture of the drainage from her abscess was sent for culture and sensitivity. Preliminary showing gram positive cocci in clusters. Awaiting sensitivity reports. Continue with analgesics as previously ordered. Avoid NSAIDs at this time. (2) Anemia: Code(s): D64.9 - Anemia, unspecified Status: Acute Assessment and Plan: Patient's vital signs are stable at this time. Her abscess drainage bag does have some bloody drainage in it but it looks like it is a very small amount. Continue to monitor H&H. The patient stated she has has chronic anemia. The patient does not want a blood transfusion at this time. I explained that if she became hypotensive and was having symptoms of hypovolemic shock then we would need to give her some Hespan or even some plasma. The patient stated that she was in the shock then she will agree to the blood transfusion. At this time she is stable. The patient stated that she does have a history of iron deficiency anemia needs to be restarted back on her iron. It looks like she is taking her iron at this time. Her H&H is 8.0 in 27.4 this evening. This is up from 7.8 26.7. Please continue to monitor. I explained to the patient that she may not be absorbing the iron and may need an iron infusion. Patient is agreeable to the iron infusion. HPI Data of Consult Consult date: 02/22/23 Requesting Physician: Everett Arriaga MD Primary Care Provider: PHYSICIAN NOT ON STAFF Consult Narrative Narrative: Gladys Judge is a 47 year old female who had a history of fibroid uterus and irregular menstruation. The patient had a robotic assisted laparoscopic hysterectomy with bilateral salpingo-oophorectomy and lysis of adhesions on 02/05/2023. No immediate complications were reported. The patient came back to the emergency room on 02/20/2023 with complaints of vaginal bleed E. She also had increased pain since her surgery. Patient has stabbing pain to her lower abdomen. CT scan on the day of admission [id number] x 10.2 x 9.4 cm central pelvic abscess. Abdominal pelvis CT on 02/21/2023 was read as 7.7 x 6.7 x 5.6 cm pelvic abscess with percutaneous drain in expected position, improved from 10.5 x 10.2 x 9.5 cm on 02/20/2023. 2. Supraumbilical ventral hernia containing fat. On 02/20/2023 her H&H was noted to be 8.327.4. Earlier today was noted to be 7.8 and 26.7. Currently is 8.8 and 27.4. The patient is refusing to be transfused with blood products at this time. The hospitalist group has been consulted. Her current blood pressure is 114/88. Her pulse is 88. The patient appears to be hemodynamically stable. The patient was consulted on the date of service is 02/21/2023. Review of Systems Review of Systems: All systems reviewed & are unremarkable except as noted in HPI and below Constitutional: Constitutional: Reports as per HPI and Reports no additional constitutional complaints Eyes: Eyes: Reports as per HPI and Reports no additional eye complaints ENT: Reports system reviewed and no additional complaints, except as documented and Reports Normal hearing present Cardiovascular: Cardiovascular: Reports no additional cardiovascular complaints Respiratory: Respiratory: Reports no additional respiratory complaints and Reports no additional respiratory complaints Gastrointestinal: Gastrointestinal: Reports as per HPI and Reports no additional gastrointestinal complaints Musculoskeletal: Musculoskeletal: Reports no additional musculoskeletal complaints Integumentary/Breasts: Skin/Breast: Reports system reviewed and no additional complaints, except as docu and Reports as per HPI Neurologic: Reports system revi
[2023-02-21] MEDS: metroNIDAZOLE 250 MG TABLET 500 MG PO (20:43)
[2023-02-21 20:44] VITALS: BP 114/80; PULSE 88; RESP 18; TEMP 36.5; O2SAT 99
[2023-02-22] MEDS: PIPERACILLN/TAZ 3.375GM/NS50ML 3.375 GM/50 ML BAG IVPB ×2 (00:52→05:32)
[2023-02-22] MEDS: HYDROcodone/acetaminophen (*CRX) 5-325 MG TABLET 1 TAB PO ×3 (01:40→18:26)
[2023-02-22 05:36] VITALS: BP 119/76; PULSE 84; RESP 18; TEMP 36.4; O2SAT 97
[2023-02-22 05:38] LABS: Immature Reticulocyte Fraction 21.5 % (3.0-15.9); Reticulocyte Hemoglobin Conten 21.1 pg (28.2-35.7); Reticulocyte Percent 1.15 % (0.7-4.3); Reticulocytes Absolute 0.04 M/mm3 (0.02-0.1)
[2023-02-22 05:52] LABS: Anion Gap 7 mmol/L (8-16); Blood Urea Nitrogen 8 mg/dL (7-17); Calcium 8.6 mg/dL (8.4-10.2); Carbon Dioxide 26 mmol/L (22-30); Chloride 104 mmol/L (98-107); Estimated CRCL calculation 99 ml/min; Estimated Glomerular Filt Rate > 60; Glucose 109 mg/dL (65-110); Lactate Dehydrogenase 158 U/L (120-246); Potassium 4.3 mmol/L (3.4-5.0); Sodium 137 mmol/L (137-145)
[2023-02-22 05:54] LABS: IFOB Positive Control Positive; Immunochemical Fecal Occult Bl Negative (N)
[2023-02-22 06:55] LABS: Folic Acid 3.1 ng/mL (2.76->20); Iron 40 ug/dL (37-170)
[2023-02-22 07:04] LABS: Percent Iron Saturation 12 % (20-50)
[2023-02-22] MEDS: FERROUS SULFATE 324 MG TABLET PO ×3 (08:20→18:27)
[2023-02-22] MEDS: metroNIDAZOLE 250 MG TABLET 500 MG PO ×2 (08:20→21:39)
[2023-02-22 08:34] LABS: Basophils Absolute Auto 0.1 K/mm3 (0.0-0.1); Basophils Percent Auto 0.5 % (0.2-1.2); Eosinophils Absolute Auto 0.4 K/mm3 (0-0.3); Eosinophils Percent Auto 3.9 % (0-4.4); Hematocrit 27.2 % (37.0-47.0); Hemoglobin 7.8 g/dL (12.0-15.0); Immature Granulocyte Absolute 0.05 K/mm3 (0.00-0.031); Immature Granulocyte Percent A 0.5 % (0-0.5); Lymphocytes Absolute Auto 3.31 K/mm3 (0.9-3.2); Lymphocytes Percent Auto 32.2 % (18.3-44.2); Mean Corpuscular HGB Conc 28.7 g/dl (32-36); Mean Corpuscular Hemoglobin 24.4 pg (26-34); Mean Platelet Volume 10.5 fl (7.4-10.4); Monocytes Absolute Auto 0.7 K/mm3 (0.1-0.6); Monocytes Percent Auto 7.1 % (2.6-8.5); Neutrophils Absolute Auto 5.7 K/mm3 (1.3-6.7); Neutrophils Percent Auto 55.8 % (45.5-73.1); Platelet Count Result 622 k/mm3 (150-375); White Blood Count 10.3 K/mm3 (4.5-10.0)
[2023-02-22 08:47] LABS: Alanine Aminotransferase 71 U/L (6-35); Albumin Level 3.5 g/dL (3.5-5.1); Alkaline Phosphatase 120 U/L (38-126); Anion Gap 5 mmol/L (8-16); Aspartate Amino Transferase 61 U/L (14-36); Bilirubin,Total 0.3 mg/dL (0.2-1.3); Blood Urea Nitrogen 8 mg/dL (7-17); Calcium 8.8 mg/dL (8.4-10.2); Carbon Dioxide 26 mmol/L (22-30); Chloride 104 mmol/L (98-107); Estimated CRCL calculation 99 ml/min; Estimated Glomerular Filt Rate > 60; Glucose 107 mg/dL (65-110); Potassium 4.4 mmol/L (3.4-5.0); Sodium 135 mmol/L (137-145)
[2023-02-22] MEDS: CEFEPIME 1 GM/NS 50 ML 1 GM/50 ML BAG IVPB ×3 (08:58→21:40)
[2023-02-22 09:38] LABS: Anisocytosis 3+ (NORMAL); Hypochromasia 1+ (NORMAL); Platelet Estimate Increased (Adequate); Schistocytes None Seen (NORMAL)
[2023-02-22] MEDS: VANCOMYCIN 1,250 MG/NS 250 ML 1,250 MG/250 ML BAG 166.67 MG IVPB (09:38)
[2023-02-22 09:41] LABS: Burr Cells 1+ (NORMAL)
--- NOTE | 2023-02-22 10:52 | PM.IMPN ---
Progress Note: A&P Assessment and Plan (1) Postoperative abscess: Code(s): T81.49XA - Infection following a procedure, other surgical site, initial encounter Status: Acute Assessment and Plan: Patient post operative hysterectomy on 02/05/2023 presented on 02/20/2023 due to acute abdominal pain and vaginal bleeding. CT abdomen pelvis revealed 10.5 x 10.2 x 9.4 cm central pelvic abscess Patient was started on Zosyn and Flagyl on 02/20/2023. Blood cultures were drawn and revealed Gram-positive cocci in clusters. Patient not actively covered for MRSA infection. Antibiotics changed to vancomycin, cefepime and Flagyl for broader coverage. Blood culture came back positive for Staph epidermidis in 1 bottle. This could be contaminant. Would like to wait for wound cultures to return before deescalating antibiotics. (2) Anemia: Code(s): D64.9 - Anemia, unspecified Status: Acute Assessment and Plan: Patient has a history of chronic iron deficiency anemia and she takes iron supplements at home. Continue to monitor H&H. The patient does not want a blood transfusion at this time. But will if she develops shock. She continues her iron supplements. And has agreed to an iron infusion. Strongly consider transfusion if hemoglobin becomes less than 7. Subjective Date/time seen: 02/22/23 10:52 Interval history: Patient sitting up in bed resting comfortably. Patient was very concerned about her antibiotic change and I explained to her that she needed broader coverage due to the type of bacteria that was growing in her blood and wound culture. She verbalized her understanding. Antibiotics were changed to have MRSA coverage as well as other Gram-positive and negative bacteria. She states that she does have some left lower quadrant pain. She denies any nausea vomiting. She has agreed to an iron transfusion due to her H&H. Her questions were answered best my ability. Review of Systems Review of Systems: All systems reviewed & are unremarkable except as noted in HPI and below Exam Narrative: GENERAL: Comfortable, no acute distress HENMT: moist mucous membranes EYES: EOM intact b/l NECK: no lymphadenopathy RESPIRATORY: clear to auscultation CARDIO: RRR GI: Soft, bowel sounds present; procedural incision sites healing well without significant bruising, active bleeding, or erythema around the site. Dressing over suprapubic area is dry and intact. Drain is in place and draining bloody fluid. SKIN: no rashes EXTREMITIES: no edema, redness or tenderness Objective Data Vital Signs Vital Signs: Vital Signs - 24 hr 02/21/23 14:00 02/21/23 20:44 02/22/23 05:36 Temperature 97.1 F L 97.7 F 97.6 F Pulse Rate 99 88 84 Respiratory Rate 16 18 18 Blood Pressure 110/73 114/80 119/76 Pulse Oximetry 99 99 97 Intake/Output Intake/Output: Intake & Output 02/19/23 02/20/23 02/21/23 02/22/23 23:59 23:59 23:59 23:59 Intake Total 4110 1880 510 Output Total 1070 50 350 Balance 3040 1830 160 Meds/Results Medications: Active Medications Generic Name Dose Route Start Last Admin Trade Name Freq PRN Reason Stop Dose Admin Acetaminophen 650 mg 02/20/23 09:58 Acetaminophen 325 Mg Tablet PO Q4H PRN pain Hydrocodone Bitart/Acetaminophen 1 tab 02/20/23 17:48 02/22/23 05:36 Hydrocodone/Acetaminophen (*Crx) 5-325 Mg Tablet PO 1 tab Q4H PRN Administration Pain Rated 4-6 Hydrocodone Bitart/Acetaminophen 1 tab 02/20/23 17:48 02/21/23 12:11 Hydrocodone/Acetaminophen (*Crx) 10-325 Mg Tablet PO 1 tab Q4H PRN Administration Pain Rated 7-10 Ferrous Sulfate 324 mg 02/21/23 12:00 02/22/23 08:20 Ferrous Sulfate 324 Mg Tablet PO 324 mg TIDWM PAULA Administration Cefepime HCl 1 gm in 50 mls @ 100 mls/hr 02/22/23 08:25 02/22/23 09:28 Maxipime 1 Gm/Ns 50 Ml IVPB Infused Q8HR PAULA Infusion Vancomycin HCl 1,000 mg in 25
--- NOTE | 2023-02-22 11:24 | PM.GYNPNOP ---
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 She is clinically improving. There is a question if there is negative pressure on drain. Will consult wound nurse check to make sure it was functioning properly. Positive cultures. Antibiotics changed accordingly. Hospitalist consult and coverage appreciated. (2) Bacteremia: Code(s): R78.81 - Bacteremia Status: Acute Assessment and Plan: Continue antibiotics as ordered by hospitalist. Susceptibility testing pending. (3) Anemia: Code(s): D64.9 - Anemia, unspecified Status: Acute Assessment and Plan: Agree with plan for iron infusion. H&H stable. Continue to follow. Time Spent With Patient Time: Total time spent is greater than 50% in coordination of care (as documented) at patient's floor/unit and/or counseling patient: Time with patient: 15 - 25 minutes WATERWORKS SUPERVISOR- PN:Stanislaw Post-Op Subjective Date/time seen: 02/22/23 11:24 Interval history: She states minimal vaginal bleeding. She has been walking around she is tolerating regular food positive bowel movements. She had questions regarding the antibiotic change which I informed her I agree with the hospitalist. She states still has tenderness in the lower area. Sometimes it feels like it is more tender. Continues to have some drainage from the drain last output was 50 cc. No leg pain no chest pain or shortness of breath. No chills. Review of Systems Constitutional: Constitutional: Denies chills Respiratory: Respiratory: Reports no additional respiratory complaints Gastrointestinal: Gastrointestinal: Reports no additional gastrointestinal complaints Genitourinary: Comments: Minimal vaginal spotting Musculoskeletal: Musculoskeletal: Reports no additional musculoskeletal complaints Exam Const: General: comfortable and no acute distress Resp: Effort & Inspection: normal respiratory effort Auscultation: clear to auscultation bilaterally Cardio: Rate: regular rate GI: Other: Drain dressing intact tenderness lower abdomen the firmness palpates slightly decreased from yesterday exam at the site where she is tender, she is coke still cleaner in that area Neuro: General: oriented to person, oriented to place and oriented to time Extrem: General: normal to inspection and no calf tenderness Psych: Appearance: grossly normal WATERWORKS SUPERVISOR - PN: Obj Data Vital Signs Vital Signs: Vital Signs - 24 hr 02/21/23 14:00 02/21/23 20:44 02/22/23 05:36 Temperature 97.1 F L 97.7 F 97.6 F Pulse Rate 99 88 84 Respiratory Rate 16 18 18 Blood Pressure 110/73 114/80 119/76 Pulse Oximetry 99 99 97 Intake/Output Intake/Output: Intake & Output 02/19/23 02/20/23 02/21/23 02/22/23 23:59 23:59 23:59 23:59 Intake Total 4110 1880 510 Output Total 1070 50 350 Balance 3040 1830 160 Meds/Results Medications: Active Medications Generic Name Dose Route Start Last Admin Trade Name Freq PRN Reason Stop Dose Admin Acetaminophen 650 mg 02/20/23 09:58 Acetaminophen 325 Mg Tablet PO Q4H PRN pain Hydrocodone Bitart/Acetaminophen 1 tab 02/20/23 17:48 02/22/23 05:36 Hydrocodone/Acetaminophen (*Crx) 5-325 Mg Tablet PO 1 tab Q4H PRN Administration Pain Rated 4-6 Hydrocodone Bitart/Acetaminophen 1 tab 02/20/23 17:48 02/21/23 12:11 Hydrocodone/Acetaminophen (*Crx) 10-325 Mg Tablet PO 1 tab Q4H PRN Administration Pain Rated 7-10 Ferrous Sulfate 324 mg 02/21/23 12:00 02/22/23 08:20 Ferrous Sulfate 324 Mg Tablet PO 324 mg TIDWM PAULA Administration Cefepime HCl 1 gm in 50 mls @ 100 mls/hr 02/22/23 08:25 02/22/23 09:28 Maxipime 1 Gm/Ns 50 Ml IVPB Infused Q8HR PAULA Infusion Vancomycin HCl 1,000 mg in 250 mls @ 250 mls/hr 02/22/23 10:30 Vancomycin 1,000 Mg/Ns 250 Ml IVPB 02/22/23 11:29
[2023-02-22] MEDS: VANCOMYCIN 1,000 MG/NS 250 ML 1,000 MG/250 ML BAG 250 MG IVPB (11:28)
[2023-02-22] MEDS: IRON SUCROSE COMPLEX 500 MG in SODIUM CHLORIDE 0.9% IV 250 ML 78.57 MG IVPB (12:45)
[2023-02-22 14:00] VITALS: BP 112/76; PULSE 91; RESP 14; TEMP 36.4; O2SAT 100
[2023-02-22 21:29] VITALS: BP 108/59; PULSE 100; RESP 18; TEMP 36.3; O2SAT 97
[2023-02-23] MEDS: HYDROcodone/acetaminophen (*CRX) 5-325 MG TABLET 1 TAB PO ×4 (01:00→18:26)
--- NOTE | 2023-02-23 02:09 | PC.NURSE ---
UNABLE TO VISUALIZE LOCATION FOR ADEQUATE IV ACCESS VIA ULTRASOUND. 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 ORDER FOR PICC PLACEMENT, REFLEX SET AND CONSENT ENTERED. [facility] NOTIFIED.
[2023-02-23 05:32] VITALS: BP 116/79; PULSE 86; RESP 18; TEMP 36.6; O2SAT 100
[2023-02-23 05:39] LABS: Hematocrit 26.6 % (37.0-47.0); Hemoglobin 7.7 g/dL (12.0-15.0); Mean Corpuscular HGB Conc 28.9 g/dl (32-36); Mean Corpuscular Hemoglobin 24.4 pg (26-34); Mean Corpuscular Volume 84.4 fl (80-100); Mean Platelet Volume 9.8 fl (7.4-10.4); Platelet Count Result 646 k/mm3 (150-375); Red Blood Count 3.15 M/mm3 (4.2-5.4); White Blood Count 9.4 K/mm3 (4.5-10.0)
[2023-02-23 05:49] LABS: Estimated CRCL calculation 99 ml/min; Estimated Glomerular Filt Rate > 60
--- NOTE | 2023-02-23 06:05 | PC.NURSE ---
PICC LINE PLACEMENT REQUEST PLACED THROUGH [facility]. AWAIT CALL BACK.
--- NOTE | 2023-02-23 08:30 | PM.GYNPNOP ---
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 Assessment and plan (1) Anemia: Code(s): D64.9 - Anemia, unspecified Status: Acute Assessment and Plan: received iron transfusion yesterday and continues on oral iron (2) Postoperative abscess: Code(s): T81.49XA - Infection following a procedure, other surgical site, initial encounter Status: Acute Assessment and Plan: clinically and objectively improving drain still with bloody foul-smelling discharge white count normal this morning afebrile without complaints unfortunately unable to maintain a peripheral IV and PICC line has been ordered final sensitivities pending continue current management Time Spent With Patient Time: Total time spent is greater than 50% in coordination of care (as documented) at patient's floor/unit and/or counseling patient: Time with patient: less than 15 minutes SOFTBALL COACH- PN:Stanislaw Post-Op Subjective Date/time seen: 02/23/23 08:30 Interval history: The only complaint this morning is discomfort around her drain site. Patient tolerating diet and ambulating well. Exam Narrative: Incisions well healed, bandage around drain site dry, dark bloody fluid and drain [id number] abdomen soft, nontender, nondistended Const: General: no acute distress SOFTBALL COACH - PN: Obj Data Vital Signs Vital Signs: Vital Signs - 24 hr 02/22/23 14:00 02/22/23 21:29 02/22/23 20:00 Temperature 97.6 F 97.4 F L Pulse Rate 91 100 Respiratory Rate 14 18 Blood Pressure 112/76 108/59 L Pulse Oximetry 100 97 Oxygen Delivery Room Air 02/23/23 05:32 Temperature 97.9 F Pulse Rate 86 Respiratory Rate 18 Blood Pressure 116/79 Pulse Oximetry 100 Oxygen Delivery Intake/Output Intake/Output: Intake & Output 02/20/23 02/21/23 02/22/23 02/23/23 23:59 23:59 23:59 23:59 Intake Total 4110 1880 1865 1999 Output Total 1070 50 350 Balance 3040 1830 1515 1999 Meds/Results Medications: Active Medications Generic Name Dose Route Start Last Admin Trade Name Freq PRN Reason Stop Dose Admin Acetaminophen 650 mg 02/20/23 09:58 Acetaminophen 325 Mg Tablet PO Q4H PRN pain Hydrocodone Bitart/Acetaminophen 1 tab 02/20/23 17:48 02/23/23 05:54 Hydrocodone/Acetaminophen (*Crx) 5-325 Mg Tablet PO 1 tab Q4H PRN Administration Pain Rated 4-6 Hydrocodone Bitart/Acetaminophen 1 tab 02/20/23 17:48 02/21/23 12:11 Hydrocodone/Acetaminophen (*Crx) 10-325 Mg Tablet PO 1 tab Q4H PRN Administration Pain Rated 7-10 Ferrous Sulfate 324 mg 02/21/23 12:00 02/22/23 18:27 Ferrous Sulfate 324 Mg Tablet PO 324 mg TIDWM PAULA Administration Cefepime HCl 1 gm in 50 mls @ 100 mls/hr 02/22/23 08:25 02/23/23 07:26 Maxipime 1 Gm/Ns 50 Ml IVPB Not Given Q8HR PAULA Vancomycin HCl 1,500 mg in 500 mls @ 250 mls/hr 02/22/23 21:00 02/23/23 01:40 Vancomycin 1,500 Mg/D5w 500 Ml IVPB Infused Q12H PAULA Infusion Metronidazole 500 mg 02/21/23 21:00 02/22/23 21:39 Metronidazole 250 Mg Tablet PO 500 mg Q12HR PAULA Administration Ondansetron HCl 4 mg 02/20/23 08:03 Ondansetron Inj 4 Mg/2 Ml Vial IV PUSH Q4H PRN Nausea Polyethylene Glycol 17 gm 02/21/23 11:00 02/21/23 12:16 Polyethylene Glycol 3350 17 Gm Powd.Pack PO 17 gm QAM PRN Administration Constipation Radiology Results: ITS Impressions Catheter Placement CT 02/20/23 15:33 IMPRESSION: 1. Successful CT-guided pelvic abscess drainage. 2. 5 mL opaque, red, foul-smelling fluid was sent for aerobic and anaerobic cultures. Abdomen/Pelvis CT 02/21/23 10:34 IMPRESSION: 1. 7.7 x 6.7 x 5.6 cm pelvic abscess with percutaneous drain in expected position, improved from 10.5 x 10.2 x 9.5 cm on 02/20/2023. 2. Supraumbilical ventral hernia containing fat. Labs 02/23/23 05:20 02/23/23 05:20 Labs: Laboratory Results - last 24 hr 02/22/23 02/23/23 05:30 05:20 WBC 10
[2023-02-23] MEDS: FERROUS SULFATE 324 MG TABLET PO ×3 (10:05→16:59)
[2023-02-23] MEDS: metroNIDAZOLE 250 MG TABLET 500 MG PO ×2 (10:05→23:00)
--- NOTE | 2023-02-23 12:15 | PM.IMPN ---
Progress Note: A&P Assessment and Plan (1) Postoperative abscess: Code(s): T81.49XA - Infection following a procedure, other surgical site, initial encounter Status: Acute Assessment and Plan: Patient post operative hysterectomy on 02/05/2023 presented on 02/20/2023 due to acute abdominal pain and vaginal bleeding. CT abdomen pelvis revealed 10.5 x 10.2 x 9.4 cm central pelvic abscess Patient was started on Zosyn and Flagyl on 02/20/2023. Blood cultures were drawn and revealed Gram-positive cocci in clusters. Patient not actively covered for MRSA infection. Antibiotics changed to vancomycin, cefepime and Flagyl for broader coverage. Blood culture came back positive for Staph epidermidis in 1 bottle. This is likely a contaminant. Would like to wait for wound cultures to return before deescalating antibiotics. (2) Anemia: Qualifiers: Anemia type: iron deficiency Iron deficiency anemia type: unspecified iron deficiency Qualified Code(s): D50.9 - Iron deficiency anemia, unspecified Code(s): D64.9 - Anemia, unspecified Status: Acute Assessment and Plan: Patient has a history of chronic iron deficiency anemia and she takes iron supplements at home. Continue to monitor H&H. The patient does not want a blood transfusion at this time. But will if she develops shock. She continues her iron supplements. And has agreed to an iron infusion. Strongly consider transfusion if hemoglobin becomes less than 7. Subjective Date/time seen: 02/23/23 12:15 Interval history: Patient doing well sitting up in bed with family member at bedside. Patient continued to have mild left lower quadrant pain likely due to pelvic abscess. Her perc drain continues to drain bloody fluid. Awaiting anaerobic culture results to tailor antibiotic therapy. She denies body aches, chills, fever, nausea, vomiting. States she is no longer having vaginal discharge. Review of Systems Review of Systems: All systems reviewed & are unremarkable except as noted in HPI and below Exam Narrative: GENERAL: Comfortable, no acute distress HENMT: moist mucous membranes EYES: EOM intact b/l NECK: no lymphadenopathy RESPIRATORY: clear to auscultation CARDIO: RRR GI: Soft, bowel sounds present, distension; procedural incision sites healing well without significant bruising, active bleeding, or erythema around the site. Dressing over suprapubic area is dry and intact. Drain is in place and draining bloody fluid. SKIN: no rashes EXTREMITIES: no edema, redness or tenderness Objective Data Vital Signs Vital Signs: Vital Signs - 24 hr 02/22/23 14:00 02/22/23 21:29 02/22/23 20:00 Temperature 97.6 F 97.4 F L Pulse Rate 91 100 Respiratory Rate 14 18 Blood Pressure 112/76 108/59 L Pulse Oximetry 100 97 Oxygen Delivery Room Air 02/23/23 05:32 02/23/23 10:00 Temperature 97.9 F Pulse Rate 86 Respiratory Rate 18 Blood Pressure 116/79 Pulse Oximetry 100 Oxygen Delivery Room Air Intake/Output Intake/Output: Intake & Output 02/20/23 02/21/23 02/22/23 02/23/23 23:59 23:59 23:59 23:59 Intake Total 4110 1880 1865 2220 Output Total 1070 50 350 Balance 3040 1830 1515 2220 Meds/Results Medications: Active Medications Generic Name Dose Route Start Last Admin Trade Name Freq PRN Reason Stop Dose Admin Acetaminophen 650 mg 02/20/23 09:58 Acetaminophen 325 Mg Tablet PO Q4H PRN pain Hydrocodone Bitart/Acetaminophen 1 tab 02/20/23 17:48 02/23/23 05:54 Hydrocodone/Acetaminophen (*Crx) 5-325 Mg Tablet PO 1 tab Q4H PRN Administration Pain Rated 4-6 Hydrocodone Bitart/Acetaminophen 1 tab 02/20/23 17:48 02/21/23 12:11 Hydrocodone/Acetaminophen (*Crx) 10-325 Mg Tablet PO 1 tab Q4H PRN Administration Pain Rated 7-10 Ferrous Sulfate 324 mg 02/21/23 12:00 02/23/23 10:05 Ferrous Sulfate 324 Mg Tablet PO 324 mg TIDW
[2023-02-23] MEDS: CEFEPIME 1 GM/NS 50 ML 1 GM/50 ML BAG IVPB ×2 (13:43→22:59)
[2023-02-23 14:00] VITALS: BP 100/55; PULSE 86; RESP 14; TEMP 36.8; O2SAT 100
[2023-02-23 21:18] VITALS: BP 106/56; PULSE 93; RESP 18; TEMP 36.6; O2SAT 100
[2023-02-23 21:45] LABS: Vancomycin Trough 8.6 ug/mL (10.0-20.0)
[2023-02-23] MEDS: polyethylene glycoL 3350 17 GM POWD.PACK PO (22:58)
[2023-02-23] MEDS: CENTRAL LINE FLUSH 10 ML IV PUSH (23:00)
[2023-02-24] MEDS: HYDROcodone/acetaminophen (*CRX) 5-325 MG TABLET 1 TAB PO ×3 (02:23→22:59)
[2023-02-24 05:46] VITALS: BP 115/74; PULSE 73; RESP 16; TEMP 36.6; O2SAT 100
[2023-02-24] MEDS: CEFEPIME 1 GM/NS 50 ML 1 GM/50 ML BAG IVPB (05:46)
[2023-02-24] MEDS: CENTRAL LINE FLUSH 20 ML IV PUSH (05:48)
[2023-02-24] MEDS: CENTRAL LINE FLUSH 10 ML IV PUSH ×3 (05:48→20:00)
[2023-02-24 06:07] LABS: Hematocrit 25.1 % (37.0-47.0); Hemoglobin 7.3 g/dL (12.0-15.0); Mean Corpuscular HGB Conc 29.1 g/dl (32-36); Mean Corpuscular Hemoglobin 24.7 pg (26-34); Mean Corpuscular Volume 84.8 fl (80-100); Mean Platelet Volume 9.6 fl (7.4-10.4); Platelet Count Result 636 k/mm3 (150-375); Red Blood Count 2.96 M/mm3 (4.2-5.4); Red Cell Distribution Width 24.2 % (11.5-14.5); White Blood Count 8.9 K/mm3 (4.5-10.0)
[2023-02-24 06:20] LABS: Anion Gap -1 mmol/L (8-16); Blood Urea Nitrogen 5 mg/dL (7-17); Carbon Dioxide 30 mmol/L (22-30); Chloride 106 mmol/L (98-107); Estimated CRCL calculation 99 ml/min; Estimated Glomerular Filt Rate > 60; Glucose 103 mg/dL (65-110); Potassium 4.1 mmol/L (3.4-5.0); Sodium 135 mmol/L (137-145)
[2023-02-24] MEDS: FERROUS SULFATE 324 MG TABLET PO ×3 (08:11→17:13)
[2023-02-24] MEDS: metroNIDAZOLE 250 MG TABLET 500 MG PO ×3 (08:11→19:59)
--- NOTE | 2023-02-24 09:45 | PM.GYNPNOP ---
BOX LIDDER - A/P Assessment and plan (1) Bacteremia: Code(s): R78.81 - Bacteremia Status: Acute Assessment and Plan: One blood culture positive possible contaminant will get another set of blood cultures. Continue antibiotics. Plan per hospitalist. (2) Anemia: Qualifiers: Anemia type: iron deficiency Iron deficiency anemia type: unspecified iron deficiency Qualified Code(s): D50.9 - Iron deficiency anemia, unspecified Code(s): D64.9 - Anemia, unspecified Status: Acute Assessment and Plan: She received iron infusion. Asymptomatic. (3) Abdominal abscess: Status: Acute Assessment and Plan: We will obtain a CT today since her tenderness may be slightly increased at localize area. She is still having small amount bloody drainage from the drain. Culture ID and sensitivity pending from prior culture. If the CT does not show significant change and since she is having tenderness then will consider laparoscopic removal of infected hematoma tomorrow. Time Spent With Patient Time: Total time spent is greater than 50% in coordination of care (as documented) at patient's floor/unit and/or counseling patient: Time with patient: less than 15 minutes BOX LIDDER- PN:Subj Post-Op Subjective Date/time seen: 02/24/23 09:45 Interval history: She said that she is feeling more pressure in lower abdomen at the firm area near pubic area when she gets up, had some more mild vaginal blood when changed pad this morning. Culture sensitivity and ID pending Review of Systems Constitutional: Constitutional: Reports no additional constitutional complaints Cardiovascular: Cardiovascular: Reports no additional cardiovascular complaints Respiratory: Respiratory: Reports no additional respiratory complaints Gastrointestinal: Gastrointestinal: Reports no additional gastrointestinal complaints Genitourinary: Genitourinary: Reports as per HPI Exam Const: General: no acute distress Neck: Neck: normal visual inspection Resp: Effort & Inspection: normal respiratory effort GI: Other: Soft area of tenderness at the lower suprapubic area, no guarding or rebound. BOX LIDDER - PN: Obj Data Vital Signs Vital Signs: Vital Signs - 24 hr 02/23/23 10:00 02/23/23 14:00 02/23/23 21:18 Temperature 98.2 F 97.8 F Pulse Rate 86 93 Respiratory Rate 14 18 Blood Pressure 100/55 L 106/56 L Pulse Oximetry 100 100 Oxygen Delivery Room Air 02/23/23 20:00 02/24/23 05:46 02/24/23 08:15 Temperature 98 F Pulse Rate 73 Respiratory Rate 16 Blood Pressure 115/74 Pulse Oximetry 100 Oxygen Delivery Room Air Room Air Intake/Output Intake/Output: Intake & Output 02/21/23 02/22/23 02/23/23 02/24/23 23:59 23:59 23:59 23:59 Intake Total 1880 1865 3630 1700 Output Total 50 350 30 10 Balance 1830 1515 3600 1690 Meds/Results Medications: Active Medications Generic Name Dose Route Start Last Admin Trade Name Freq PRN Reason Stop Dose Admin Acetaminophen 650 mg 02/20/23 09:58 Acetaminophen 325 Mg Tablet PO Q4H PRN pain Hydrocodone Bitart/Acetaminophen 1 tab 02/20/23 17:48 02/24/23 02:23 Hydrocodone/Acetaminophen (*Crx) 5-325 Mg Tablet PO 1 tab Q4H PRN Administration Pain Rated 4-6 Hydrocodone Bitart/Acetaminophen 1 tab 02/20/23 17:48 02/21/23 12:11 Hydrocodone/Acetaminophen (*Crx) 10-325 Mg Tablet PO 1 tab Q4H PRN Administration Pain Rated 7-10 Ferrous Sulfate 324 mg 02/21/23 12:00 02/24/23 08:11 Ferrous Sulfate 324 Mg Tablet PO 324 mg TIDWM PAULA Administration Cefepime HCl 1 gm in 50 mls @ 100 mls/hr 02/22/23 08:25 02/24/23 06:16 Maxipime 1 Gm/Ns 50 Ml IVPB Infused Q8HR PAULA Infusion Vancomycin HCl 1,750 mg in 500 mls @ 250 mls/hr 02/23/23 22:00 02/24/23 07:47 Vancomycin 1,750 Mg/D5w 500 Ml IVPB Infused Q8H PAULA Infusion Metronidazole 500 mg 02/21/23 21:00 02/24/23 08:11 Metronidazole 2
--- NOTE | 2023-02-24 13:25 | PM.IMPN ---
Progress Note: A&P Assessment and Plan (1) Postoperative abscess: Code(s): T81.49XA - Infection following a procedure, other surgical site, initial encounter Status: Acute Assessment and Plan: Patient post operative hysterectomy on 02/05/2023 presented on 02/20/2023 due to acute abdominal pain and vaginal bleeding. CT abdomen pelvis revealed 10.5 x 10.2 x 9.4 cm central pelvic abscess. After drain was in place repeat CT revealed a 7.7 x 6 x 7 x 5.6 cm pelvic abscess. Imaging on 02/24/2023 was unchanged from previous imaging. Patient was started on Zosyn and Flagyl on 02/20/2023. Blood cultures were drawn and revealed Gram-positive cocci in clusters. Patient not actively covered for MRSA infection. Antibiotics changed to vancomycin, cefepime and Flagyl for broader coverage. Blood culture came back positive for Staph epidermidis in 1 bottle. This is likely a contaminant. Would culture positive for bacteroides 02/24/23 Antibiotics deescalated to PO Augmentin and Flagyl for total of 2 weeks from the 6th (2) Anemia: Qualifiers: Anemia type: iron deficiency Iron deficiency anemia type: unspecified iron deficiency Qualified Code(s): D50.9 - Iron deficiency anemia, unspecified Code(s): D64.9 - Anemia, unspecified Status: Acute Assessment and Plan: Patient has a history of chronic iron deficiency anemia and she takes iron supplements at home. Continue to monitor H&H. The patient does not want a blood transfusion at this time. But will if she develops shock. She continues her iron supplements. And has agreed to an iron infusion. Strongly consider transfusion if hemoglobin becomes less than 7. Subjective Date/time seen: 02/24/23 13:25 Interval history: Patient doing about the same today. She continues to have left lower quadrant pain. Denies any nausea, vomiting, body aches and chills. Her perc drain continues to drain malodorous bloody fluid. Again discuss the need for possible transfusion and patient stated that if it is absolutely necessary she would undergo transfusion. Review of Systems Review of Systems: All systems reviewed & are unremarkable except as noted in HPI and below Exam Narrative: GENERAL: Comfortable, no acute distress HENMT: moist mucous membranes EYES: EOM intact b/l NECK: no lymphadenopathy RESPIRATORY: clear to auscultation CARDIO: RRR GI: Soft, bowel sounds present, distension; procedural incision sites healing well without significant bruising, active bleeding, or erythema around the site. Dressing over suprapubic area is dry and intact. Drain is in place and draining bloody fluid. SKIN: no rashes EXTREMITIES: no edema, redness or tenderness Objective Data Vital Signs Vital Signs: Vital Signs - 24 hr 02/23/23 14:00 02/23/23 21:18 02/23/23 20:00 Temperature 98.2 F 97.8 F Pulse Rate 86 93 Respiratory Rate 14 18 Blood Pressure 100/55 L 106/56 L Pulse Oximetry 100 100 Oxygen Delivery Room Air 02/24/23 05:46 02/24/23 08:15 Temperature 98 F Pulse Rate 73 Respiratory Rate 16 Blood Pressure 115/74 Pulse Oximetry 100 Oxygen Delivery Room Air Intake/Output Intake/Output: Intake & Output 02/21/23 02/22/23 02/23/23 02/24/23 23:59 23:59 23:59 23:59 Intake Total 1880 1865 3630 2060 Output Total 50 350 30 10 Balance 1830 1515 3600 2050 Meds/Results Medications: Active Medications Generic Name Dose Route Start Last Admin Trade Name Freq PRN Reason Stop Dose Admin Acetaminophen 650 mg 02/20/23 09:58 Acetaminophen 325 Mg Tablet PO Q4H PRN pain Hydrocodone Bitart/Acetaminophen 1 tab 02/20/23 17:48 02/24/23 02:23 Hydrocodone/Acetaminophen (*Crx) 5-325 Mg Tablet PO 1 tab Q4H PRN Administration Pain Rated 4-6 Hydrocodone Bitart/Acetaminophen 1 tab 02/20/23 17:48 02/21/23 12:11 Hydrocodone/Acetaminophen (*Crx) 10-325 Mg Tablet PO 1 tab Q
[2023-02-24 14:00] VITALS: BP 122/69; PULSE 79; RESP 16; TEMP 36.2; O2SAT 100
[2023-02-24] MEDS: AMOXICILLIN/CLAVULANATE K 875-125 MG TAB 1 TABLET PO (19:58)
[2023-02-24 21:47] VITALS: BP 124/78; PULSE 95; RESP 18; TEMP 36.8; O2SAT 99
[2023-02-25] VITALS (14 sets, daily range): BP systolic 104–140; BP diastolic 60–95; PULSE 51–96; RESP 16–26; TEMP 36.2–37.4; O2SAT 95–100
[2023-02-25] MEDS: metroNIDAZOLE 250 MG TABLET 500 MG PO ×2 (06:01→19:52)
[2023-02-25] MEDS: HYDROcodone/acetaminophen (*CRX) 5-325 MG TABLET 1 TAB PO ×2 (06:01→19:52)
[2023-02-25] MEDS: CENTRAL LINE FLUSH 10 ML IV PUSH ×3 (06:03→20:41)
[2023-02-25 06:26] LABS: Hematocrit 24.6 % (37.0-47.0); Hemoglobin 7.1 g/dL (12.0-15.0); Mean Corpuscular HGB Conc 28.9 g/dl (32-36); Mean Corpuscular Hemoglobin 24.5 pg (26-34); Mean Corpuscular Volume 84.8 fl (80-100); Mean Platelet Volume 9.4 fl (7.4-10.4); Platelet Count Result 607 k/mm3 (150-375); Red Cell Distribution Width 24.7 % (11.5-14.5); White Blood Count 9.5 K/mm3 (4.5-10.0)
[2023-02-25 06:43] LABS: Alanine Aminotransferase 41 U/L (6-35); Albumin Level 2.9 g/dL (3.5-5.1); Alkaline Phosphatase 87 U/L (38-126); Anion Gap -2 mmol/L (8-16); Aspartate Amino Transferase 39 U/L (14-36); Bilirubin,Total 0.2 mg/dL (0.2-1.3); Blood Urea Nitrogen 4 mg/dL (7-17); Calcium 8.2 mg/dL (8.4-10.2); Carbon Dioxide 31 mmol/L (22-30); Chloride 104 mmol/L (98-107); Estimated CRCL calculation 114 ml/min; Estimated Glomerular Filt Rate > 60; Glucose 101 mg/dL (65-110); Potassium 4.1 mmol/L (3.4-5.0); Sodium 133 mmol/L (137-145)
--- NOTE | 2023-02-25 08:11 | PM.GYNPNOP ---
SALES SERVICE EXECUTIVE - A/P Assessment and plan (1) Abdominal abscess: Status: Acute Assessment and Plan: Will proceed with diagnostic laparoscopy and removal of hematoma/abscess. Culture pos for bacteroides, antibiotics adjusted. Discussed risk benefits of procedure. She is scheduled for this afternoon. (2) Anemia: Qualifiers: Anemia type: iron deficiency Iron deficiency anemia type: unspecified iron deficiency Qualified Code(s): D50.9 - Iron deficiency anemia, unspecified Code(s): D64.9 - Anemia, unspecified Status: Acute Assessment and Plan: Asymptomatic. Not a significant change from admission. Still discussed possible blood transfusion. (3) Bacteremia: Code(s): R78.81 - Bacteremia Status: Acute Assessment and Plan: Assuming contaminant. Hospital service managing antibiotics. Postoperative Procedures: Procedures Operation Date: 02/25/23 14:45 <No data on this case meets the specified criteria> Time Spent With Patient Time: Total time spent is greater than 50% in coordination of care (as documented) at patient's floor/unit and/or counseling patient: Time with patient: less than 15 minutes SALES SERVICE EXECUTIVE- PN:Subj Post-Op Subjective Date/time seen: 02/25/23 08:11 Interval history: She says she feels about the same. Still has the pain in the lower abdomen. Having small amount vaginal blood discharge. No leg pain or CP or SOB. NPO x chips since last night. Exam Const: General: comfortable Resp: Effort & Inspection: normal respiratory effort Cardio: Rate: regular rate Rhythm: regular rhythm GI: Other: +bS soft mild lower abdominal tenderness Extrem: General: normal to inspection and no calf tenderness SALES SERVICE EXECUTIVE - PN: Obj Data Vital Signs Vital Signs: Vital Signs - 24 hr 02/24/23 08:15 02/24/23 14:00 02/24/23 20:00 Temperature 97.2 F L Pulse Rate 79 Respiratory Rate 16 Blood Pressure 122/69 Pulse Oximetry 100 Oxygen Delivery Room Air Room Air 02/24/23 21:47 02/25/23 05:34 Temperature 98.2 F 97.2 F L Pulse Rate 95 86 Respiratory Rate 18 16 Blood Pressure 124/78 107/63 Pulse Oximetry 99 98 Oxygen Delivery Intake/Output Intake/Output: Intake & Output 02/22/23 02/23/23 02/24/23 02/25/23 23:59 23:59 23:59 23:59 Intake Total 1865 3630 2800 Output Total 350 30 10 0 Balance 1515 3600 2790 0 Meds/Results Medications: Active Medications Generic Name Dose Route Start Last Admin Trade Name Soheila PRN Reason Stop Dose Admin Acetaminophen 650 mg 02/20/23 09:58 Acetaminophen 325 Mg Tablet PO Q4H PRN pain Hydrocodone Bitart/Acetaminophen 1 tab 02/20/23 17:48 02/25/23 06:01 Hydrocodone/Acetaminophen (*Crx) 5-325 Mg Tablet PO 1 tab Q4H PRN Administration Pain Rated 4-6 Hydrocodone Bitart/Acetaminophen 1 tab 02/20/23 17:48 02/21/23 12:11 Hydrocodone/Acetaminophen (*Crx) 10-325 Mg Tablet PO 1 tab Q4H PRN Administration Pain Rated 7-10 Amoxicillin/Clavulanate Potassium 1 tablet 02/24/23 21:00 02/25/23 07:32 Amoxicillin/Clavulanate K 875-125 Mg Tab PO Not Given Q12HR PAULA Ferrous Sulfate 324 mg 02/21/23 12:00 02/25/23 07:32 Ferrous Sulfate 324 Mg Tablet PO Not Given TIDWM PAULA Metronidazole 500 mg 02/24/23 14:00 02/25/23 06:01 Metronidazole 250 Mg Tablet PO 500 mg Q8HR PAULA Administration Ondansetron HCl 4 mg 02/20/23 08:03 Ondansetron Inj 4 Mg/2 Ml Vial IV PUSH Q4H PRN Nausea Polyethylene Glycol 17 gm 02/21/23 11:00 02/23/23 22:58 Polyethylene Glycol 3350 17 Gm Powd.Pack PO 17 gm QAM PRN Administration Constipation Sodium Chloride 20 ml 02/23/23 21:05 02/24/23 05:48 Central Line Flush IV PUSH 20 ml PRN PRN Administration after blood draws Sodium Chloride 10 ml 02/23/23 21:05 Central Line Flush IV PUSH PRN PRN with TPN bag changes Sodium Chloride 10 ml 02/23/23 22:00 02/25/23 06:0
[2023-02-25 08:35] LABS: Haptoglobin 377 mg/dL (43-212)
--- NOTE | 2023-02-25 12:41 | PC.NURSE ---
Esthetician/Spa Coordinator called blood bank because blood is not ready in the [facility]. Blood bank states it will be ready in 45 minutes. Esthetician/Spa Coordinator updated pre-op surgery on current status of upcoming blood transfusion.
--- NOTE | 2023-02-25 14:05 | PC.NURSE ---
Product number on blood bag was not scanning. Verified blood bag at bed side with MAR with surgery RN, 3 medical RN Vika, and belt maker helper Stephanie.
--- NOTE | 2023-02-25 14:07 | PC.NURSE ---
Patient off of the unit to Surgery
[2023-02-25] MEDS: SODIUM CHLORIDE 0.9% IV 250 ML 30 ML IV CONT (14:08)
[2023-02-25] MEDS: LACTATED RINGERS 1,000 ML 30 ML IV CONT ×2 (14:20→17:23)
--- NOTE | 2023-02-25 14:23 | WPDANESEPPF ---
Anes - Initial Pre Proc Eval Procedure: Operation Date: 02/25/23 14:45 Proposed Procedures p Laparoscopic Removal Of Pelvic Abscess - Everett Arriaga MD Date/Time: 02/25/23 14:23 Surgeon: Everett Arriaga MD Pre Op Diagnosis: Intra-abdominal abscess Patient Data Age: 47 Gender: F Height: 1.68 m Weight: 94.2 kg Last Vital Signs Temp 37.4 C 02/25/23 14:12 Pulse 88 02/25/23 14:12 Resp 16 02/25/23 14:12 BP 126/72 02/25/23 14:12 Pulse Ox 100 02/25/23 14:12 O2 Del Method Room Air 02/25/23 10:15 Allergies Allergy/AdvReac Type Severity Reaction Status Date / Time No Known Allergies Allergy Verified 01/15/23 10:51 Home Medications Medication Instructions Recorded Confirmed Type spironolactone 100 mg tablet 100 mg PO BID 04/27/20 02/20/23 History ferrous sulfate 325 mg (65 mg 325 mg PO BID #60 tabs 01/15/23 02/20/23 Rx iron) tablet hydrocodone 5 mg-acetaminophen 325 1 tablet PO Q4H PRN pain #20 tabs 02/06/23 02/20/23 Rx mg tablet ketorolac 10 mg tablet 10 mg PO Q6H PRN Pain Rated 4-6 02/06/23 02/20/23 Rx #15 tabs Laboratory Tests 02/22/23 02/25/23 02/25/23 05:30 06:19 10:52 WBC 9.5 K/mm3 (4.5-10.0) RBC 2.90 L M/mm3 (4.2-5.4) Hgb 7.1 L g/dL (12.0-15.0) Hct 24.6 L % (37.0-47.0) MCV 84.8 fl (80-100) MCH 24.5 L pg (26-34) MCHC 28.9 L g/dl (32-36) RDW 24.7 H % (11.5-14.5) Plt Count 607 H k/mm3 (150-375) MPV 9.4 fl (7.4-10.4) Haptoglobin 377 H mg/dL (43-212) Sodium 133 L mmol/L (137-145) Potassium 4.1 mmol/L (3.4-5.0) Chloride 104 mmol/L (98-107) Carbon Dioxide 31 H mmol/L (22-30) Anion Gap -2 L mmol/L (8-16) BUN 4 L mg/dL (7-17) Creatinine 0.60 L mg/dL (0.7-1.0) Estim Creat Clear Calc 114 ml/min Estimated GFR > 60 (59 - ) Glucose 101 mg/dL (65-110) Calcium 8.2 L mg/dL (8.4-10.2) Total Bilirubin 0.2 mg/dL (0.2-1.3) AST 39 H U/L (14-36) ALT 41 H U/L (6-35) Alkaline Phosphatase 87 U/L (38-126) Total Protein 6.0 L g/dL (6.3-8.2) Albumin 2.9 L g/dL (3.5-5.1) Blood Type O Positive Antibody Screen Positive Antibody Identification Anti-E Antigen Identification TNP FELISHA, IgG Interpret Not Performed FELISHA, Poly Interpret Neg FELISHA, Complement Interp Not Performed Enhanced Crossmatch See Detail Patient hx anesthesia problems: none Family hx anesthesia problems: none Results Review: All pre-operative results and documents have been reviewed as part of the pre-operative evaluation. [facility] Past Medical History Medical History (Updated 02/23/23 @ 12:18 by Rosana Mora PA-C) Anemia [place] Fibroid uterus Irregular periods Overweight Surgical History Surgical History H/O hysterectomy with oophorectomy H/O myomectomy Family History Family History Father Family history of diabetes mellitus in first degree relative Mother Family history of lupus erythematosus Social History Social History (Updated 02/22/23 @ 01:07 by Nikki Kendrick NP) Social History: The patient works for the [employer]. She is single not . She lives alone. She has never had any children. She socially drinks. She does not have a durable power commonwealth attorney for healthcare. Code status full code Smoking packs per day: 0.05 Smoking cigarettes per day: 1.0 Smoking status: Current every day smoker Tobacco type: cigarettes Second hand tobacco smoke exposure: No Smoking end date: 08/18/03 Additional smoking assessment comments: PT STATES T
--- NOTE | 2023-02-25 15:29 | PM.IMPN ---
Progress Note: A&P Assessment and Plan (1) Postoperative abscess: Code(s): T81.49XA - Infection following a procedure, other surgical site, initial encounter Status: Acute Assessment and Plan: Patient post operative hysterectomy on 02/05/2023 presented on 02/20/2023 due to acute abdominal pain and vaginal bleeding. CT abdomen pelvis revealed 10.5 x 10.2 x 9.4 cm central pelvic abscess. After drain was in place repeat CT revealed a 7.7 x 6 x 7 x 5.6 cm pelvic abscess. Imaging on 02/24/2023 was unchanged from previous imaging. Patient was started on Zosyn and Flagyl on 02/20/2023. Blood cultures were drawn and revealed Gram-positive cocci in clusters. Patient not actively covered for MRSA infection. Antibiotics changed to vancomycin, cefepime and Flagyl for broader coverage. Blood culture came back positive for Staph epidermidis in 1 bottle. This is likely a contaminant. Would culture positive for bacteroides 02/24/23 Antibiotics deescalated to PO Augmentin and Flagyl for total of 2 weeks from the 02/25/23 patient underwent laparoscopic removal of hematoma/abscess. (2) Anemia: Qualifiers: Anemia type: iron deficiency Iron deficiency anemia type: unspecified iron deficiency Qualified Code(s): D50.9 - Iron deficiency anemia, unspecified Code(s): D64.9 - Anemia, unspecified Status: Acute Assessment and Plan: Patient has a history of chronic iron deficiency anemia and she takes iron supplements at home. Continue to monitor H&H. The patient does not want a blood transfusion at this time. But will if she develops shock. She continues her iron supplements. And has agreed to an iron infusion. Strongly consider transfusion if hemoglobin becomes less than 7. 02/25/23 patient received blood transfusion prior to surgery. Subjective Date/time seen: 02/25/23 15:29 Interval history: Patient doing well sitting up in the chair. She is to undergo surgery today for abscess/hematoma removal. She will receive 1 unit of PRBCs prior to surgery due to acute on chronic anemia. She is still having lingering left lower quadrant pain. She denies any nausea, vomiting, diarrhea. She did have couple of vaginal blood clots early this morning that passed without any difficulty/pain. No fevers, body aches or chills. Review of Systems Review of Systems: All systems reviewed & are unremarkable except as noted in HPI and below Exam Narrative: GENERAL: Comfortable, no acute distress HENMT: moist mucous membranes EYES: EOM intact b/l NECK: no lymphadenopathy RESPIRATORY: clear to auscultation CARDIO: RRR GI: Soft, bowel sounds present, distension; procedural incision sites healing well without significant bruising, active bleeding, or erythema around the site. Dressing over suprapubic area is dry and intact. Drain is in place and draining bloody fluid. SKIN: no rashes EXTREMITIES: no edema, redness or tenderness Objective Data Vital Signs Vital Signs: Vital Signs - 24 hr 02/24/23 20:00 02/24/23 21:47 02/25/23 05:34 Temperature 98.2 F 97.2 F L Pulse Rate 95 86 Respiratory Rate 18 16 Blood Pressure 124/78 107/63 Pulse Oximetry 99 98 Oxygen Delivery Room Air 02/25/23 10:15 02/25/23 13:56 02/25/23 14:12 Temperature 98.6 F 99.3 F Pulse Rate 82 88 Respiratory Rate 16 16 Blood Pressure 133/71 126/72 Pulse Oximetry 99 100 Oxygen Delivery Room Air 02/25/23 14:57 02/25/23 15:10 Temperature 98.7 F 98.9 F Pulse Rate 96 95 Respiratory Rate 16 16 Blood Pressure 124/70 132/69 Pulse Oximetry 100 100 Oxygen Delivery Intake/Output Intake/Output: Intake & Output 02/22/23 02/23/23 02/24/23 02/25/23 23:59 23:59 23:59 23:59 Intake Total 1865 3630 2800 0 Output Total 350 30 10 0 Balance 1515 3600 2790 0 Meds/Results Medications: Active Medications Generic Name Dose Route Start Last Admin Trade Name Freq PRN Reason Stop
[2023-02-25] MEDS: SODIUM CHLORIDE 0.9% IV 500 ML 30 ML IV CONT (15:30)
[2023-02-25] MEDS: diphenhydrAMINE HCl INJ 50 MG/ML VIAL 25 MG IV PUSH (15:34)
--- NOTE | 2023-02-25 15:59 | SUR.PREOP ---
1559- Patient in OR, labs not obtained prior to leaving pre-op room 8. Labels given to supervisor particleboard for specimens needing drawn status post transfusion reaction.
[2023-02-25] MEDS: BUPivacaine HCL 0.5% 10 ML AMP 30 ML INFILTRATE (16:25)
--- NOTE | 2023-02-25 16:33 | SUR.OPER ---
Labs given to Ashley Sena SA. Received in lab by Val at [id number]
[2023-02-25 16:42] LABS: Total Bilirubin Imm Post TxRxn 0.2 mg/dL (0.2-1.3)
[2023-02-25 16:52] LABS: TXRXN Occult Blood Urine Immed Negative (Negative)
--- NOTE | 2023-02-25 16:54 | SUR.OPER ---
HELENE Joshi sent urine sample to lab at 1640
--- NOTE | 2023-02-25 17:04 | W.PM.PROC2 ---
Procedure Note - Detailed Date of Procedure 02/25/23 Pre-op Diagnosis Intra-abdominal abscess Post-op Diagnosis Other (pelvic adhesions) Procedure Performed Diagnostic laparoscopy, lysis of adhesions Surgeon Everett Arriaga MD Anesthesia General Indications Persistent Findings No fluid collection no hemoperitoneum there was large amount of scar tissue of the intestines to the pelvic sidewall and lower pelvis. On vaginal sterile speculum exam the cuff was intact. On bimanual exam cuff was intact. Small amount of blood vaginally. Rectovaginal exam confirmed. Description of Procedure After informed consent was obtained patient was taken to the operating room and general endotracheal anesthesia was administered. She was placed in low lithotomy position the sutures for the drain were removed and the drain was removed by the lock maintenance supervisor prior to prepping the abdomen. An exam under anesthesia was performed no mass was palpated. And then the abdomen was prepped and draped. Attention was turned to the vagina after the bladder was drained of 450 clear urine. The speculum was inserted the cup was visualized and noted to be intact. A ring forceps with gauze was placed in the vagina. With new sterile gloves attention was turned to the abdomen along the prior supraumbilical incision 0.5% Marcaine was injected subcutaneously the incision was incised with the scalpel the subcutaneous tissue which had granulation tissue was dissected down to the fascia the fascia was grabbed and incised and the abdomen was entered. The fascial edges were secured with 0 Vicryl and a size 10 is some port was inserted the fascial sutures were secured to the his son port. A pneumoperitoneum of 15 mm per mercury was obtained patient was placed in Trendelenburg position. Attention was turned to the left side of the abdomen and 0.5% Marcaine was injected at prior scar and incision was made a 5 mm port was inserted under laparoscopic visualization attention was then turned to the right side of the abdomen 0.5% Marcaine was injected subcutaneously and the incision was made along prior scar and another 5 mm port was inserted under laparoscopic visualization. There was noted to be some fatty tissue inferior to this it was not attached to any tissue. The pelvis was visualized there were adhesions which were not dense but many adhesions of the intestines to the pelvis and the sidewall and the lower anterior abdomen. There was some lysis of adhesions performed to get visualization or attempt to get visualization of the posterior cul-de-sac. Could see through some of the scar tissue to the lateral cul-de-sac no fluid collections were seen. No blood. Did not lyse any adhesions over the cuff the cuff was not visualized abdominally. Patient was taken out of Trendelenburg position did not see any type of fluid come down into the pelvis out of Trendelenburg. The ports were removed. The fascia of was approximated with the fascial 0 Vicryl stitch an additional stitch was used to approximate the fascia. The skin incisions were closed in a subcuticular fashion with 4-0 Vicryl and Dermabond. She was extubated in operating room and taken to recovery in stable condition. Estimated Blood Loss 20 Urine Output 0 Packing No Pathology None sent Complications No immediate complications Disposition PACU [facility] Billing Surgery - Charge Forward: Surgery Billing
[2023-02-25] MEDS: fentaNYL CITRATE INJ (*CRX) 100 MCG/2 ML VIAL 25 MCG IV PUSH ×4 (18:02→18:08)
--- NOTE | 2023-02-25 18:35 | PC.NURSE ---
Patient back to unit from surgery
[2023-02-25] MEDS: AMOXICILLIN/CLAVULANATE K 875-125 MG TAB 1 TABLET PO (19:52)
[2023-02-25 22:32] LABS: Total Bilirubin 5hr Post TX RX 0.2 mg/dL (0.2-1.3)
[2023-02-26] VITALS: BP 122/83; PULSE 91; RESP 16; TEMP 36.2; O2SAT 98
[2023-02-26] MEDS: HYDROcodone/acetaminophen (*CRX) 5-325 MG TABLET 1 TAB PO ×4 (03:06→20:11)
[2023-02-26] MEDS: polyethylene glycoL 3350 17 GM POWD.PACK PO ×2 (03:07→20:11)
[2023-02-26 04:00] VITALS: BP 119/72; PULSE 76; RESP 16; TEMP 36.1; O2SAT 98
[2023-02-26] MEDS: metroNIDAZOLE 250 MG TABLET 500 MG PO ×3 (05:40→20:11)
[2023-02-26] MEDS: CENTRAL LINE FLUSH 10 ML IV PUSH ×3 (05:40→21:14)
[2023-02-26 07:00] LABS: Hematocrit 26.9 % (37.0-47.0); Hemoglobin 7.9 g/dL (12.0-15.0); Mean Corpuscular HGB Conc 29.4 g/dl (32-36); Mean Corpuscular Hemoglobin 24.9 pg (26-34); Mean Corpuscular Volume 84.9 fl (80-100); Mean Platelet Volume 9.2 fl (7.4-10.4); Platelet Count Result 616 k/mm3 (150-375); Red Blood Count 3.17 M/mm3 (4.2-5.4); Red Cell Distribution Width 24.9 % (11.5-14.5); White Blood Count 12.1 K/mm3 (4.5-10.0)
--- NOTE | 2023-02-26 08:10 | PC.NURSE ---
[employer] called Dr. Arriaga's office in regards to pharmacy communication. Waiting for a call back from Dr. Arriaga at this time.
[2023-02-26 08:18] VITALS: BP 109/73; PULSE 74; RESP 17; TEMP 36.7; O2SAT 99
[2023-02-26] MEDS: AMOXICILLIN/CLAVULANATE K 875-125 MG TAB 1 TABLET PO ×2 (10:04→20:12)
[2023-02-26] MEDS: FERROUS SULFATE 324 MG TABLET PO ×3 (10:04→18:04)
--- NOTE | 2023-02-26 10:14 | PM.GYNPNOP ---
DIRECTOR HEMATOLOGY - A/P Assessment and plan (1) Abdominal abscess: Status: Acute Assessment and Plan: Pelvic abscess. The prior drain was not draining it was removed at surgery. Discussed that she will still have some vaginal bleeding until it is gone. Postop day 1 status post laparoscopy lysis of adhesions. Continue oral antibiotics. Anticipate possible discharge tomorrow. (2) Anemia: Qualifiers: Anemia type: iron deficiency Iron deficiency anemia type: unspecified iron deficiency Qualified Code(s): D50.9 - Iron deficiency anemia, unspecified Code(s): D64.9 - Anemia, unspecified Status: Acute Assessment and Plan: Continue iron therapy. She did receive 1 unit of PRBCs and then had a reaction. Asymptomatic. Postoperative Procedures: Procedures Operation Date: 02/25/23 14:45 Actual Procedure Side Surgeon p Diagnostic Laparoscopy, Lysis of Adhesions Everett Arriaga MD Time Spent With Patient Time: Total time spent is greater than 50% in coordination of care (as documented) at patient's floor/unit and/or counseling patient: Time with patient: less than 15 minutes DIRECTOR HEMATOLOGY- PN:Subj Post-Op Subjective Date/time seen: 02/26/23 10:14 Interval history: She reports adequate pain control. She has ambulated in the room. Discussed her surgery findings. Positive flatus. No chest pain or shortness of breath. Exam Const: General: comfortable, alert and awake Resp: Effort & Inspection: normal respiratory effort Auscultation: clear to auscultation bilaterally Cardio: Rate: regular rate Rhythm: regular rhythm GI: Other: Positive bowel sounds throughout. Incisions healing well. Extrem: General: no calf tenderness DIRECTOR HEMATOLOGY - PN: Obj Data Vital Signs Vital Signs: Vital Signs - 24 hr 02/25/23 10:15 02/25/23 13:56 02/25/23 14:12 Temperature 98.6 F 99.3 F Pulse Rate 82 88 Respiratory Rate 16 16 Blood Pressure 133/71 126/72 Pulse Oximetry 99 100 Oxygen Delivery Room Air Oxygen Flow Rate 02/25/23 14:57 02/25/23 15:10 02/25/23 17:23 Temperature 98.7 F 98.9 F 97.6 F Pulse Rate 96 95 61 Respiratory Rate 16 16 18 Blood Pressure 124/70 132/69 137/95 H Pulse Oximetry 100 100 100 Oxygen Delivery Simple Face Mask Oxygen Flow Rate 02/25/23 17:30 02/25/23 17:45 02/25/23 18:00 Temperature Pulse Rate 54 L 51 L 66 Respiratory Rate 20 26 H 26 H Blood Pressure 140/70 134/84 126/82 Pulse Oximetry 100 100 96 Oxygen Delivery Simple Face Mask Room Air Room Air Oxygen Flow Rate 10 02/25/23 18:15 02/25/23 18:47 02/25/23 18:55 Temperature 97.8 F 97.2 F L Pulse Rate 79 72 73 Respiratory Rate 20 18 20 Blood Pressure 111/76 104/60 111/66 Pulse Oximetry 95 96 96 Oxygen Delivery Room Air Oxygen Flow Rate 02/25/23 19:25 02/25/23 20:25 02/25/23 20:00 Temperature 97.7 F 98.0 F Pulse Rate 73 70 Respiratory Rate 20 20 Blood Pressure 108/63 111/64 Pulse Oximetry 96 100 Oxygen Delivery Room Air Oxygen Flow Rate 02/26/23 00:00 02/26/23 04:00 02/26/23 08:18 Temperature 97.2 F L 97.0 F L 98.0 F Pulse Rate 91 76 74 Respiratory Rate 16 16 17 Blood Pressure 122/83 119/72 109/73 Pulse Oximetry 98 98 99 Oxygen Delivery Oxygen Flow Rate Intake/Output Intake/Output: Intake & Output 02/23/23 02/24/23 02/25/23 02/26/23 23:59 23:59 23:59 23:59 Intake Total 3630 2800 612 720 Output Total 30 10 350 Balance 3600 2790 262 720 Meds/Results Medications: Active Medications Generic Name Dose Route Start Last Admin Trade Name Chuckyq PRN Reason Stop Dose Admin Acetaminophen 650 mg 02/20/23 09:58 Acetaminophen 325 Mg Tablet PO Q4H PRN pain Hydrocodone Bitart/Acetaminophen 1 tab 02/20/23 17:48 02/26/23 10:10 Hydrocodone/Acetaminophen (*Crx) 5-325 Mg Tablet PO 1 tab Q4H PRN Administration Pain Rated 4-6 Hydrocodone Bitart/Acetaminophen 1 tab 02/20/23 17:48 02/21/23 12:11 Hydrocodone/[place]
--- NOTE | 2023-02-26 11:06 | PM.IMPN ---
Progress Note: A&P Assessment and Plan (1) Postoperative abscess: Code(s): T81.49XA - Infection following a procedure, other surgical site, initial encounter Status: Acute Assessment and Plan: Patient post operative hysterectomy on 02/05/2023 presented on 02/20/2023 due to acute abdominal pain and vaginal bleeding. CT abdomen pelvis revealed 10.5 x 10.2 x 9.4 cm central pelvic abscess. After drain was in place repeat CT revealed a 7.7 x 6 x 7 x 5.6 cm pelvic abscess. Imaging on 02/24/2023 was unchanged from previous imaging. Patient was started on Zosyn and Flagyl on 02/20/2023. Blood cultures were drawn and revealed Gram-positive cocci in clusters. Patient not actively covered for MRSA infection. Antibiotics changed to vancomycin, cefepime and Flagyl for broader coverage. Blood culture came back positive for Staph epidermidis in 1 bottle. This is likely a contaminant. Would culture positive for bacteroides 02/24/23 Antibiotics deescalated to PO Augmentin and Flagyl for total of 2 weeks from the 02/25/23 patient underwent laparoscopic removal of hematoma/abscess. (2) Anemia: Qualifiers: Anemia type: iron deficiency Iron deficiency anemia type: unspecified iron deficiency Qualified Code(s): D50.9 - Iron deficiency anemia, unspecified Code(s): D64.9 - Anemia, unspecified Status: Acute Assessment and Plan: Patient has a history of chronic iron deficiency anemia and she takes iron supplements at home. Continue to monitor H&H. The patient does not want a blood transfusion at this time. But will if she develops shock. She continues her iron supplements. And has agreed to an iron infusion. Strongly consider transfusion if hemoglobin becomes less than 7. 02/25/23 patient received blood transfusion prior to surgery. Subjective Date/time seen: 02/26/23 11:06 Interval history: No complaints Exam Narrative: GENERAL: Comfortable, no acute distress HENMT: moist mucous membranes EYES: EOM intact b/l NECK: no lymphadenopathy RESPIRATORY: clear to auscultation CARDIO: RRR GI: Soft, bowel sounds present, distension; procedural incision sites healing well without significant bruising, active bleeding, or erythema around the site. Dressing over suprapubic area is dry and intact. Drain is in place and draining bloody fluid. SKIN: no rashes EXTREMITIES: no edema, redness or tenderness Objective Data Vital Signs Vital Signs: Vital Signs - 24 hr 02/25/23 13:56 02/25/23 14:12 02/25/23 14:57 Temperature 98.6 F 99.3 F 98.7 F Pulse Rate 82 88 96 Respiratory Rate 16 16 16 Blood Pressure 133/71 126/72 124/70 Pulse Oximetry 99 100 100 Oxygen Delivery Oxygen Flow Rate 02/25/23 15:10 02/25/23 17:23 02/25/23 17:30 Temperature 98.9 F 97.6 F Pulse Rate 95 61 54 L Respiratory Rate 16 18 20 Blood Pressure 132/69 137/95 H 140/70 Pulse Oximetry 100 100 100 Oxygen Delivery Simple Face Mask Simple Face Mask Oxygen Flow Rate 10 10 02/25/23 17:45 02/25/23 18:00 02/25/23 18:15 Temperature Pulse Rate 51 L 66 79 Respiratory Rate 26 H 26 H 20 Blood Pressure 134/84 126/82 111/76 Pulse Oximetry 100 96 95 Oxygen Delivery Room Air Room Air Room Air Oxygen Flow Rate 02/25/23 18:47 02/25/23 18:55 02/25/23 19:25 Temperature 97.8 F 97.2 F L 97.7 F Pulse Rate 72 73 73 Respiratory Rate 18 20 20 Blood Pressure 104/60 111/66 108/63 Pulse Oximetry 96 96 96 Oxygen Delivery Oxygen Flow Rate 02/25/23 20:25 02/25/23 20:00 02/26/23 00:00 Temperature 98.0 F 97.2 F L Pulse Rate 70 91 Respiratory Rate 20 16 Blood Pressure 111/64 122/83 Pulse Oximetry 100 98 Oxygen Delivery Room Air Oxygen Flow Rate 02/26/23 04:00 02/26/23 08:18 02/26/23 10:10 Temperature 97.0 F L 98.0 F Pulse Rate 76 74 Respiratory Rate 16 17 Blood Pressure 119/72 109/73 Pulse Oximetry 98 99 Oxygen Delivery Room Air Oxygen Flow Rate
[2023-02-26] MEDS: SPIRONOLACTONE 50 MG TABLET 100 MG PO ×2 (11:50→18:05)
[2023-02-26 13:31] VITALS: BP 126/69; PULSE 93; RESP 19; TEMP 36.1; O2SAT 100
[2023-02-26 19:06] VITALS: BP 119/66; PULSE 80; RESP 18; TEMP 36.4; O2SAT 100
[2023-02-26 21:30] LABS: Creatinine, Random Urine 62 mg/dL (20-275); Total Protein/Creatinine Ratio 194 mg/g creat (24-184)
[2023-02-27] MEDS: HYDROcodone/acetaminophen (*CRX) 5-325 MG TABLET 1 TAB PO (00:28)
[2023-02-27 00:51] VITALS: PULSE 80; O2SAT 100
[2023-02-27 04:35] VITALS: BP 129/85; PULSE 78; RESP 16; TEMP 36.3; O2SAT 99
[2023-02-27] MEDS: metroNIDAZOLE 250 MG TABLET 500 MG PO (05:49)
[2023-02-27] MEDS: CENTRAL LINE FLUSH 10 ML IV PUSH (05:50)
--- NOTE | 2023-02-27 09:18 | PM.GYNPNOP ---
SHANKER OUT - A/P Assessment and plan (1) Abdominal abscess: Status: Acute Assessment and Plan: She is improved. Minimal pain. Will discharge home. Will send home with antibiotics. (2) Anemia: Qualifiers: Anemia type: iron deficiency Iron deficiency anemia type: unspecified iron deficiency Qualified Code(s): D50.9 - Iron deficiency anemia, unspecified Code(s): D64.9 - Anemia, unspecified Status: Acute Assessment and Plan: Continue iron supplementation. Postoperative Procedures: Procedures Operation Date: 02/25/23 14:45 Actual Procedure Side Surgeon p Diagnostic Laparoscopy, Lysis of Adhesions Everett Arriaga MD Time Spent With Patient Time: Total time spent is greater than 50% in coordination of care (as documented) at patient's floor/unit and/or counseling patient: Time with patient: less than 15 minutes [facility]ANKER OUT- PN:Subj Post-Op Subjective Date/time seen: 02/27/23 09:18 Interval history: She states less pain, she is ambulating well, eating regular food, pos flatus, dark vaginal spotting, which she was informed will continue until resolved. No leg pain. Exam Const: General: comfortable and no acute distress Resp: Effort & Inspection: normal respiratory effort GI: Other: incisions intact, nontender with palpation Extrem: General: normal to inspection and no calf tenderness SHANKER OUT - PN: Obj Data Vital Signs Vital Signs: Vital Signs - 24 hr 02/26/23 10:10 02/26/23 13:31 02/26/23 19:06 Temperature 97.0 F L 97.6 F Pulse Rate 93 80 Respiratory Rate 19 18 Blood Pressure 126/69 119/66 Pulse Oximetry 100 100 Oxygen Delivery Room Air 02/26/23 20:00 02/27/23 00:51 02/27/23 04:35 Temperature 97.3 F L Pulse Rate 80 78 Respiratory Rate 16 Blood Pressure 129/85 Pulse Oximetry 100 99 Oxygen Delivery Room Air Room Air Intake/Output Intake/Output: Intake & Output 02/24/23 02/25/23 02/26/23 02/27/23 23:59 23:59 23:59 23:59 Intake Total 2800 612 1160 350 Output Total 10 350 Balance 2790 262 1160 350 Meds/Results Medications: Active Medications Generic Name Dose Route Start Last Admin Trade Name Freq PRN Reason Stop Dose Admin Acetaminophen 650 mg 02/20/23 09:58 Acetaminophen 325 Mg Tablet PO Q4H PRN pain Hydrocodone Bitart/Acetaminophen 1 tab 02/20/23 17:48 02/27/23 00:28 Hydrocodone/Acetaminophen (*Crx) 5-325 Mg Tablet PO 1 tab Q4H PRN Administration Pain Rated 4-6 Hydrocodone Bitart/Acetaminophen 1 tab 02/20/23 17:48 02/21/23 12:11 Hydrocodone/Acetaminophen (*Crx) 10-325 Mg Tablet PO 1 tab Q4H PRN Administration Pain Rated 7-10 Amoxicillin/Clavulanate Potassium 1 tablet 02/24/23 21:00 02/26/23 20:12 Amoxicillin/Clavulanate K 875-125 Mg Tab PO 1 tablet Q12HR PAULA Administration Fentanyl Citrate 25 mcg 02/25/23 18:20 02/25/23 18:08 Fentanyl Citrate Inj (*Crx) 100 Mcg/2 Ml Vial IV PUSH 25 mcg PRN PRN Administration Pain Ferrous Sulfate 324 mg 02/21/23 12:00 02/26/23 18:04 Ferrous Sulfate 324 Mg Tablet PO 324 mg TIDWM PAULA Administration Ketorolac Tromethamine 10 mg 02/25/23 20:53 Ketorolac 10 Mg Tablet PO Q6H PRN Pain Rated 4-6 Metronidazole 500 mg 02/24/23 14:00 02/27/23 05:49 Metronidazole 250 Mg Tablet PO 500 mg Q8HR PAULA Administration Ondansetron HCl 4 mg 02/20/23 08:03 Ondansetron Inj 4 Mg/2 Ml Vial IV PUSH Q4H PRN Nausea Ondansetron HCl 4 mg 02/25/23 14:23 Ondansetron Inj 4 Mg/2 Ml Vial IV PUSH ONCE PRN Nausea Oxycodone HCl 5 mg 02/25/23 14:23 Oxycodone Hcl (*Crx) 5 Mg Tab Ir PO ONCE PRN Pain Polyethylene Glycol 17 gm 02/21/23 11:00 02/26/23 20:11 Polyethylene Glycol 3350 17 Gm Powd.Pack PO 17 gm QAM PRN Administration Constipation Sodium Chloride 20 ml 02/23/23 21:05 02/24/23 05:48 Central Line Flush IV PUSH 20 ml PRN
[2023-02-27] MEDS: AMOXICILLIN/CLAVULANATE K 875-125 MG TAB 1 TABLET PO (09:22)
[2023-02-27] MEDS: FERROUS SULFATE 324 MG TABLET PO (09:22)
[2023-02-27] MEDS: SPIRONOLACTONE 50 MG TABLET 100 MG PO (09:23)
--- NOTE | 2023-02-27 10:58 | PCNWS ---
Weekly nutritional screen. Patient is tolerating current diet with adequate intake. No weight loss reported. No nutritional needs at this time.
--- NOTE | 2023-02-27 11:52 | PM.IMPN ---
Progress Note: A&P Assessment and Plan (1) Postoperative abscess: Code(s): T81.49XA - Infection following a procedure, other surgical site, initial encounter Status: Acute Assessment and Plan: Patient post operative hysterectomy on 02/05/2023 presented on 02/20/2023 due to acute abdominal pain and vaginal bleeding. CT abdomen pelvis revealed 10.5 x 10.2 x 9.4 cm central pelvic abscess. After drain was in place repeat CT revealed a 7.7 x 6 x 7 x 5.6 cm pelvic abscess. Imaging on 02/24/2023 was unchanged from previous imaging. Patient was started on Zosyn and Flagyl on 02/20/2023. Blood cultures were drawn and revealed Gram-positive cocci in clusters. Patient not actively covered for MRSA infection. Antibiotics changed to vancomycin, cefepime and Flagyl for broader coverage. Blood culture came back positive for Staph epidermidis in 1 bottle. This is likely a contaminant. Would culture positive for bacteroides 02/24/23 Antibiotics deescalated to PO Augmentin and Flagyl for total of 2 weeks from the 02/25/23 patient underwent laparoscopic removal of hematoma/abscess. (2) Anemia: Qualifiers: Anemia type: iron deficiency Iron deficiency anemia type: unspecified iron deficiency Qualified Code(s): D50.9 - Iron deficiency anemia, unspecified Code(s): D64.9 - Anemia, unspecified Status: Acute Assessment and Plan: Patient has a history of chronic iron deficiency anemia and she takes iron supplements at home. Continue to monitor H&H. The patient does not want a blood transfusion at this time. But will if she develops shock. She continues her iron supplements. And has agreed to an iron infusion. Strongly consider transfusion if hemoglobin becomes less than 7. 02/25/23 patient received blood transfusion prior to surgery. Subjective Date/time seen: 02/27/23 11:52 Interval history: No complaints Exam Narrative: GENERAL: Comfortable, no acute distress HENMT: moist mucous membranes EYES: EOM intact b/l NECK: no lymphadenopathy RESPIRATORY: clear to auscultation CARDIO: RRR GI: Soft, bowel sounds present, distension; procedural incision sites healing well without significant bruising, active bleeding, or erythema around the site. Dressing over suprapubic area is dry and intact. Drain is in place and draining bloody fluid. SKIN: no rashes EXTREMITIES: no edema, redness or tenderness Objective Data Vital Signs Vital Signs: Vital Signs - 24 hr 02/26/23 13:31 02/26/23 19:06 02/26/23 20:00 Temperature 97.0 F L 97.6 F Pulse Rate 93 80 Respiratory Rate 19 18 Blood Pressure 126/69 119/66 Pulse Oximetry 100 100 Oxygen Delivery Room Air 02/27/23 00:51 02/27/23 04:35 02/27/23 09:22 Temperature 97.3 F L Pulse Rate 80 78 Respiratory Rate 16 Blood Pressure 129/85 Pulse Oximetry 100 99 Oxygen Delivery Room Air Room Air Intake/Output Intake/Output: Intake & Output 02/24/23 02/25/23 02/26/23 02/27/23 23:59 23:59 23:59 23:59 Intake Total 2800 612 1160 350 Output Total 10 350 Balance 2790 262 1160 350 Meds/Results Medications: Active Medications Generic Name Dose Route Start Last Admin Trade Name Freq PRN Reason Stop Dose Admin Acetaminophen 650 mg 02/20/23 09:58 Acetaminophen 325 Mg Tablet PO Q4H PRN pain Hydrocodone Bitart/Acetaminophen 1 tab 02/20/23 17:48 02/27/23 00:28 Hydrocodone/Acetaminophen (*Crx) 5-325 Mg Tablet PO 1 tab Q4H PRN Administration Pain Rated 4-6 Hydrocodone Bitart/Acetaminophen 1 tab 02/20/23 17:48 02/21/23 12:11 Hydrocodone/Acetaminophen (*Crx) 10-325 Mg Tablet PO 1 tab Q4H PRN Administration Pain Rated 7-10 Amoxicillin/Clavulanate Potassium 1 tablet 02/24/23 21:00 02/27/23 09:22 Amoxicillin/Clavulanate K 875-125 Mg Tab PO 1 tablet Q12HR PAULA Administration Fentanyl Citrate 25 mcg 02/25/23 18:20 02/25/23 18:08 Fen
--- NOTE | 2023-03-17 11:47 | PM.DS ---
DS: Admitting Diagnosis Discharge Date 02/27/23 Admitting Diagnosis Vaginal bleeding Vaginal cuff abscess DS: Discharge Diagnosis Discharge Diagnosis (1) Anemia: Qualifiers: Anemia type: iron deficiency Iron deficiency anemia type: unspecified iron deficiency Qualified Code(s): D50.9 - Iron deficiency anemia, unspecified Code(s): D64.9 - Anemia, unspecified Status: Acute (2) Abdominal abscess: Status: Acute DS: Summary Hospital Course Reason for hospitalization: Vaginal bleeding Hospital Course: she presented to the emergency room with complaints of vaginal bleeding that started acutely that morning. She had a prior uncomplicated robotic hysterectomy on 02/05/2023. She had scanning done in the emergency room and the CT showed 10 cm pelvic abscess. She was admitted and started on IV antibiotics. An order was then placed for placement of drain by CT which was done. She did have anemia on admission and initially refused a blood transfusion. She had postop studies to confirm placement of the drain. Initially there was a large amount 150 cc of blood with the initial placement of the catheter but then minimal blood after this. She did have initial blood cultures done prior to starting antibiotics initially 1 blood culture was positive but this came back as a contaminant since the 2nd blood culture was negative. She did have consultation with medicine during hospitalization. Her She did have positive growth of the blood that was initially removed at the time of the catheter placement this was positive for Bacteroides and peptostreptococcus. At this time the antibiotics were adjusted to provide adequate coverage of the species. a hospitalist station day number 4 there was minimal drainage from the drain she stated that she felt like the pain was coming back some. She was recommended for diagnostic laparoscopy due to the subjective increase in the pain. In minimal drainage. The last CT showed the pocket was approximately 7 cm. She did agree at this time to get a blood transfusion since the hemoglobin was slightly trending down. There was difficulty with getting her blood draws and a central line was placed. Her vaginal bleeding had continued to decrease during her hospital stay. She did undergo the diagnostic laparoscopy and there was some lysis of adhesions the abscess could not be visualized. The catheter was removed at prep since not working. She did well postoperatively she stated her pain was better. Her hemoglobin was stable 7.9. She was ambulating tolerating regular food. She had DVT prophylaxis throughout her stay. She had adequate pain control with pain medicines. The central line was discontinued. She was discharged home on antibiotics. Status at Discharge Functional status at discharge: independent ambulation Time Spent with Patient Time attestation: Total time spent providing and/or coordinating discharge services: Exam Const: General: no acute distress Eyes: General: appearance normal, both eyes and all related structures Resp: Effort & Inspection: normal respiratory effort Auscultation: clear to auscultation bilaterally Cardio: Rate: regular rate Rhythm: regular rhythm GI: Inspection: normal to inspection Other: Incisions healing well minimal tenderness Neuro: General: patient oriented x3 Extrem: General: no pedal edema and no calf tenderness DS: Data Data Completed and Pending Completed studies during hospitalization: Abdominal pelvic CT x 3. CT guided placement drain. Chest x-ray. Central line placement. Diagnostic laparoscopy. Procedures/Treatments: Abdominal pelvic CT x 3. CT guided placement drain. Chest x-ray. Central line placement. Diagnostic laparoscopy. Discharge Plan Discharge Attending physician on discharge: Everett Arriaga Consulting providers: Nikki Kendrick; Artem Gonzalez V.; Corey Bruner; Rosana Mora
== END 2023-02-27 13:17 | disposition home or self-care (01) | DRG 856 ==
LOC: ANHED 08:05 → ANH3MED 08:29
PROVIDERS: Internal Medicine Critical Care Medicine; Nurse Practitioner; Admitting Provider Obstetrics & Gynecology; Emergency Provider Emergency Medicine; Visit Provider Obstetrics & Gynecology
PROC: 0UJH4ZZ Inspection of Vagina and Cul-de-sac, Percutaneous Endoscopic Approach (ICD-10-PCS; CPT 49320; principal; 2023-02-25 14:45)
DX: T81.49XA Infection following a procedure, other surgical site, initial encounter (principal); A41.9 Sepsis, unspecified organism; N73.9 Female pelvic inflammatory disease, unspecified; N93.8 Other specified abnormal uterine and vaginal bleeding; B95.7 Other staphylococcus as the cause of diseases classified elsewhere; B96.6 Bacteroides fragilis [B. fragilis] as the cause of diseases classified elsewhere; B95.4 Other streptococcus as the cause of diseases classified elsewhere; D50.9 Iron deficiency anemia, unspecified; F17.210 Nicotine dependence, cigarettes, uncomplicated; Z90.710 Acquired absence of both cervix and uterus; Z90.722 Acquired absence of ovaries, bilateral
CPT/HCPCS: 36415; 36430; 36569; 74176; 74177; 75989; 80048; 80053; 80202; 81001; 82247; 82274; 82565; 82570; 82607; 82728; 82746; 82948; 83010; 83540; 83550; 83605; 83615; 83735; 84156; 84166; 84443; 85025; 85027; 85046; 85610; 85730; 86850; 86880; 86900; 86901; 86902; 86922; 87040; 87070; 87075; 87076; 87147; 87181; 87186; 87205; 96361; 96374; 96375; 99285; A9270; C1729; C1751; C1769; G0378; J0692; J1100; J1170; J1200; J1756; J2250; J2405; J2543; J2704; J2710; J3010; J3370; J7030; J7040; J7050; J7120; P9016; Q9967